=== PATIENT | female | born 1935 | race Hispanic/Latino ===

== ENCOUNTER → 2017-08-19 | Outpatient (CLI) | payer MEDICARE ==
[~2017-08-19] MED LIST: REGADENOSON 0.4 MG/5 ML SYR IV ONE
--- NOTE | 2017-08-20 07:55 | Cardiology Report ---
DATE OF STUDY: LEXISCAN NUCLEAR STRESS TEST INDICATION: Chest pain. TECHNIQUE: The patient was given 10.7 millicuries of Myoview. Resting images were obtained in the horizontal long axis, vertical long axis, and short axis. Patient was then moved over and hooked up to the EKG machine. Lexiscan was infused over 15 seconds. During Lexiscan infusion, the patient had no chest pain and no EKG changes. Immediately after completion of Lexiscan infusion, the patient was given 30.7 millicuries of Myoview. Stress images were obtained 30 minutes after completion of Lexiscan infusion. Stress images were obtained in the horizontal long axis, vertical long axis, and short axis. RESULTS 1. The resting EKG demonstrated normal sinus rhythm with nonspecific S/T and T-wave changes. 2. There were no EKG changes and no symptoms during Lexiscan infusion. 3. The patient had normal perfusion to all segments of the myocardium in both stress and rest. 4. There was normal left ventricular size and function with an estimated ejection fraction of 69%. CONCLUSION: Normal nuclear stress test with no evidence of ischemia. There is normal left ventricular size and function. Job#: [id number] [place]
== END ==
LOC: NM 10:47
PROVIDERS: ATTEND Internal Medicine Cardiovascular Disease
DX: I20.8 Other forms of angina pectoris (principal)
CPT/HCPCS: 78452; 93017; A9502

== ENCOUNTER 2019-11-10 21:55 | Inpatient (IN) | payer MEDICARE, OTHER ==
[~2019-11-10] VITALS: Ht 160 cm; Wt 63.4 kg
[2019-11-10] MEDS ORDERED: DILTIAZEM 24HR240 M1 PO (23:00)
[2019-11-10] MEDS ORDERED: LEVOTHYROXINE75 MCG PO (23:00)
[2019-11-10] MEDS ORDERED: SUCRALFATE1 GM PO (23:00)
[2019-11-10] MEDS ORDERED: LOSARTAN POTAS100 MG PO (23:00)
[2019-11-10] MEDS ORDERED: CEFDINIR300 MG PO (23:00)
[2019-11-10] MEDS ORDERED: FERROUS SULFAT325 MG PO (23:00)
[2019-11-10] MEDS ORDERED: FUROSEMIDE40 MG PO (23:00)
[2019-11-10 23:31] LABS: BASOPHILS % 0.4 % (0.0-1.0); EOSINOPHILS % 0.1 % (0.0-6.0); HEMATOCRIT 29.1 % (34.2-44.1); HEMOGLOBIN 9.2 g/dL (12.0-16.0); LYMPHOCYTES # (AUTO) 0.8 (1.0-3.2); LYMPHOCYTES % 10.2 % (18.0-39.1); MEAN CORPUSCULAR HEMOGLOBIN 28.4 pg (28-32); MEAN CORPUSCULAR HGB CONC 31.6 g/dL (31-35); MEAN CORPUSCULAR VOLUME 89.8 fL (81-99); MONOCYTES # (AUTO) 0.5 (0.2-0.8); MONOCYTES % 6.9 % (4.4-11.3); NEUTROPHILS # (AUTO) 6.4 (2.1-6.9); NEUTROPHILS % 81.9 % (38.7-80.0); PLATELET COUNT 188 x10e3/uL (140-360); RED BLOOD COUNT 3.24 x10e6/uL (3.6-5.1); RED CELL DISTRIBUTION WIDTH 13.2 % (11.7-14.4)
--- NOTE | 2019-11-10 23:31 | Diagnostic Imaging Report ---
Examination: Single AP view of the chest. COMPARISON: None. INDICATION: Cough, positive COVID test IMPRESSION: 1. Lines and Tubes: None 2. Lungs are mildly hypoinflated. Patchy bibasilar opacities, left greater than right. Questionable ill-defined patchy airspace opacity in the right upper to midlung. These may represent multifocal pneumonia including viral infection 3. Cardiomediastinal silhouette is normal. Central venous crowding. 4. No acute bony abnormalities. Signed by: Dr. Niels Gonsalez M.D. on 11/10/2019 11:27 PM
[2019-11-11] MEDS ORDERED: CEFTRIAXONE SOD 1 GM/NS 50 ML 50 ML IV ONE
[2019-11-11] MEDS ORDERED: ACETAMINOPHEN 325 MG TAB PO ONE (00:15)
[2019-11-11 00:19] LABS: ALBUMIN 3.4 g/dL (3.5-5.0); ALBUMIN/GLOBULIN RATIO 0.9 (0.8-2.0); ANION GAP 19.8 mmol/L (8-16); CREATININE, SERUM 2.74 mg/dL (0.57-1.11); POTASSIUM 5.8 mmol/L (3.5-5.1)
--- NOTE | 2019-11-11 00:19 | Emergency Department Note ---
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 Historian: Patient Arrival Mode: Car Onset (how long ago): day(s) (4) Location: CHEST Quality: COUGH, FEVER, CHILLS Radiation: Reports non-radiation Onset quality: gradual Duration (how long): day(s) (4) Progression: worsening Context: Reports recent illness (URI SYMPTOMS) Relieving factors: none Exacerbating factors: none Associated symptoms: Reports denies other symptoms (CARROLL ROY MD) Past Medical/Family History Physician Review I have reviewed the patient's past medical and family history. Any updates have been documented here. (CARROLL ORY MD) Past Medical History Recent Fever: Yes Clinical Suspicion of Infectio: Yes New/Unexplained Change in Ment: No Past Medical History: Hypertension, Hypothyroidism, Anemia Past Surgical History: Cholecysctectomy, Hernia Repair, Cataract Removal (CARROLL ROY MD) Social History Smoking Cessation: Never Smoker Alcohol Use: None Any Illegal Drug Use: No (CARROLL ROY MD) Family History Family history of heart diseas: No Other family history HTN (CARROLL ROY MD) Other Last Tetanus: UNK (CARROLL ROY MD) Review of Systems Review of Systems Constitutional: Reports as per HPI EENTM: Reports no symptoms Cardiovascular: Reports no symptoms Respiratory: Reports as per HPI Gastrointestinal: Reports as per HPI Genitourinary: Reports no symptoms Musculoskeletal: Reports no symptoms Integumentary: Reports no symptoms Neurological: Reports no symptoms Psychological: Reports no symptoms Endocrine: Reports no symptoms Hematological/Lymphatic: Reports no symptoms (CARROLL ROY MD) Physical Exam Related Data Allergies: Coded Allergies: No Known Allergies (Unverified , 12/10/11) Triage Vital Signs Vital Signs Date Time Temp Pulse Resp B/P (MAP) Pulse Ox O2 Delivery O2 Flow Rate FiO2 11/10/19 21:55 100.4 85 22 165/82 92 Vital signs reviewed: Yes (CARROLL ROY MD) Physical Exam CONSTITUTIONAL Constitutional: Present well-developed, Present well-nourished HENT HENT: Present normocephalic, Present atraumatic, Present oropharynx clear/moist, Present nose normal HENT L/R: Present left ext ear normal, Present right ext ear normal EYES Eyes: Reports PERRL, Reports conjunctivae normal NECK Neck: Present ROM normal PULMONARY Pulmonary: Present effort normal, Present rhonchi (AT BASES BILATERAL) CARDIOVASCULAR Cardiovascular: Present regular rhythm, Present heart sounds normal, Present capillary refill normal, Present normal rate GASTROINTESTINAL Abdominal: Present soft, Present nontender, Present bowel sounds normal GENITOURINARY Genitourinary: Present exam deferred SKIN Skin: Present warm, Present dry MUSCULOSKELETAL Musculoskeletal: Present ROM normal NEUROLOGICAL Neurological: Present alert, Present oriented x 3, Present no gross motor or sensory deficits PSYCHOLOGICAL Psychological: Present mood/affect normal, Present judgement normal (CARROLL ROY MD) Results Laboratory Result Diagram: 11/10/19 2730 Laboratory Laboratory Tests Test 11/10/19 22:58 White Blood Count 7.82 x10e3/uL (4.8-10.8) Red Blood Count 3.24 x10e6/uL (3.6-5.1) Hemoglobin 9.2 g/dL (12.0-16.0) Hematocrit 29.1 % (34.2-44.1) Mean Corpuscular Volume 89.8 fL (81-99) Mean Corpuscular Hemoglobin 28.4 pg (28-32) Mean Corpuscular Hemoglobin Concent 31.6 g/dL (31-35) Red Cell Distribution Width 13.2 % (11.7-14.4) Platelet Count 188 x10e3/uL (140-360) Neutrophils (%) (Auto) 81.9 % (38.7-80.0) Lymphocytes (%) (Auto) 10.2 % (18.0-39.1) Monocytes (%) (Auto) 6.9 % (4.4-11.3) Eosinophils (%) (Auto) 0.1 % (0.0-6.0) Basophils (%) (Auto) 0.4 % (0.0-1.0) Neutrophils # (Auto) 6.4 (2.1-6.9) Lymphocytes # (Auto) 0.8 (1.0-3.2) Monocytes # (Auto) 0.5 (0.2-0.8) Eosinophils # (Auto) 0.0 (0.0-0.4) Basophils # (Auto) 0.0 (0.0-0.1) Absolute Immature Granulocyte (auto 0.04 x10e3/uL (0-0.1) Sodium Level 140 mmol/L (136-145) Potassium Level 5.8 mmol/L (3.5-5.1) Chloride Level 112 mmol/L (98-107) Carbon Dioxide Level 14 mmol/L (22-29) Anion Gap 19.8 mmol/L (8-16) Blood Urea Nitrogen 51 mg/dL (7-26) Creatinine 2.74 mg/dL (0.57-1.11) Estimat Glomerular Filtration Rate 16 ML/MIN (60-) BUN/Creatinine Ratio 19 (6-25) Glucose Level 116 mg/dL (74-118) Calcium Level 8.0 mg/dL (8.4-10.2) Total Bilirubin 0.4 mg/dL (0.2-1.2) Aspartate Amino Transf (AST/SGOT) 42 IU/L (5-34) Alanine Aminotransferase (ALT/SGPT) 12 IU/L (0-55) Alkaline Phosphatase 95 IU/L (40-150) Creatine Kinase 49 IU/L (29-168) Creatine Kinase MB 0.90 ng/mL (0-5.0) Troponin I 0.015 ng/mL (0-0.300) Total Protein 7.3 g/dL (6.5-8.1) Albumin 3.4 g/dL (3.5-5.0) Globulin 3.9 g/dL (2.3-3.5) Albumin/Globulin Ratio 0.9 (0.8-2.0) Laboratory Tests Test 11/10/19 22:58 White Blood Count 7.82 x10e3/uL (4.8-10.8) Red Blood Count 3.24 x10e6/uL (3.6-5.1) Hemoglobin 9.2 g/dL (12.0-16.0) Hematocrit 29.1 % (34.2-44.1) Mean Corpuscular Volume 89.8 fL (81-99) Mean Corpuscular Hemoglobin 28.4 pg (28-32) Mean Corpuscular Hemoglobin Concent 31.6 g/dL (31-35) Red Cell Distribution Width 13.2 % (11.7-14.4) Platelet Count 188 x10e3/uL (140-360) Neutrophils (%) (Auto) 81.9 % (38.7-80.0) Lymphocytes (%) (Auto) 10.2 % (18.0-39.1) Monocytes (%) (Auto) 6.9 % (4.4-11.3) Eosinophils (%) (Auto) 0.1 % (0.0-6.0) Basophils (%) (Auto) 0.4 % (0.0-1.0) Neutrophils # (Auto) 6.4 (2.1-6.9) Lymphocytes # (Auto) 0.8 (1.0-3.2) Monocytes # (Auto) 0.5 (0.2-0.8) Eosinophils # (Auto) 0.0 (0.0-0.4) Basophils # (Auto) 0.0 (0.0-0.1) Absolute Immature Granulocyte (auto 0.04 x10e3/uL (0-0.1) Lab results reviewed: Yes (CARROLL ROY MD) Imaging Imaging results reviewed: Yes Impressions Examination: Single AP view of the chest. COMPARISON: None. INDICATION: Cough, positive COVID test IMPRESSION: 1. Lines and Tubes: None 2. Lungs are mildly hypoinflated. Patchy bibasilar opacities, left greater than right. Questionable ill-defined patchy airspace opacity in the right upper to midlung. These may represent multifocal pneumonia including viral infection 3. Cardiomediastinal silhouette is normal. Central venous crowding. 4. No acute bony abnormalities. Signed by: Dr. Niels Gonsalez M.D. on 11/10/2019 11:27 PM (CARROLL ROY MD) Procedures 12 Lead ECG Interpretation ECG Interpretation : ECG: ECG 1 Power Shovel Operator: Interpreted by ED physician Date: Nov 10, 2019 Time: 02:41 Rhythm: sinus rhythm Rate: normal BPM: 79 QRS axis: normal Conduction: LAFB ST segments normal: Yes T waves normal: No (SLIGHTLY PEAKED THROUGH OUT) Other findings: no other findings Clinical Impression: abnormal ECG (CARROLL ROY MD) Critical Care Time Total Critical Care Time (min): 31 Critcal care necessary due to: renal failure Critcal care time spent by me: develop tx plan w patient/surrogate, discussion w consultants, interpret cardiac output measures, evaluation patient response to tx, examination of patient, obtaining hx from patient/surrogate, order/perform tx or interventions, order/review laboratory studies, order/review radiographic studies, pulse oximetry, re-evaluation of patient condition (CARROLL ROY MD) Assessment & Plan Medical Decision Making MDM PT WITH POSITVE COVID TEST TODAY AND HYPERKALEMIA, CBC, CMP, EKG, CARDIAC ENZYMES, CXR ORDERED TO EVAL FOR ELECTROLYTE ABNORMALITY, PNEUMONIA, MYOCARDIAL INFARCTION ROCEPHIN 1 GRAM IV ORDERED. PT'S POTASSIUM 5.8 1 AMP CALCIUM GLUCONATE ORDERED 1 AMP BICARB ORDERED REGULAR INSULIN 10 UNITS IV ORDERED 1 AMP D5O ORDERED KAYEXALATE 30 GRAMS PO ORDERED D5 W WITH 3 AMPS OF BICARB AT 75 CC/HOUR IV ORDERED AT [address] GUTIERREZ TRANSFER PENDING (CARROLL ROY MD) Assessment & Plan Final Impression: (1) COVID-19 (2) Viral pneumonia (3) Renal failure (ARF), acute on chronic (4) Hyperkalemia (CARROLL ROY MD) Depart Disposition: ADMITTED Last Vital Signs Date Time Temp Pulse Resp B/P (MAP) Pulse Ox O2 Delivery O2 Flow Rate FiO2 11/10/19 21:55 100.4 85 22 165/82 92 (CARROLL ROY MD) Home Meds Reported Medications Losartan Potassium (LOSARTAN POTASSIUM) 100 Mg Tablet, 100 MG PO DAILY 11/10/19 Levothyroxine Sodium (LEVOTHYROXINE SODIUM) 75 Mcg Tablet, 75 MCG PO DAILY 11/10/19 Furosemide (FUROSEMIDE) 40 Mg Tablet, 40 MG PO DAILY 11/10/19 Sucralfate (SUCRALFATE) 1 Gm Tablet, 1 GM PO BID 11/10/19 Cefdinir (OMNICEF) 300 Mg Capsule, 300 MG PO DAILY 11/10/19 Ferrous Sulfate (FERROUS SULFATE) 325 Mg Tablet, 325 MG PO BID 11/10/19 Diltiazem Hcl (DILTIAZEM 24HR CD) 240 Mg Cap.er.24h, 240 MG PO DAILY 11/10/19 Medications in the ED Ceftriaxone Sodium 50 ml @ 100 mls/hr ONCE ONCE IV ; Start 11/11/19 at 00:00; Stop 11/11/19 at 00:29 Acetaminophen 650 mg ONCE ONCE PO ; Start 11/11/19 at 00:15; Stop 11/11/19 at 00:16; Status UNV (CARROLL ROY MD) Physician Attestation Provider Attestation SIGN OUT RECEIVED FROM DR. ROY to follow-up potassium AND DISPO PT Repeat potassium improved patient admitted to the inpt covid unit (TRICIA GUTIERREZ DO) CARROLL ROY MD Nov 11, 2019 00:19 TRICIA GUTIERREZ DO Nov 11, 2019 12:25
[2019-11-11 00:27] LABS: CREATINE KINASE MB 0.9 ng/mL (0-5.0)
[2019-11-11] MEDS ORDERED: SODIUM BICARBONATE 8.4% INJ 50 ML SYR IV STA (01:21)
[2019-11-11] MEDS ORDERED: DEXTROSE 50% SYRINGE 50 ML IV STA (01:21)
[2019-11-11] MEDS ORDERED: INSULIN REGULAR, HUMAN 100 UNIT/1 ML 3ML VIAL IV ONE (01:30)
[2019-11-11] MEDS ORDERED: SOD POLYSTYRENE SULFONATE SUSP 15 GM/60 ML BTL PO ONE (01:30)
[2019-11-11] MEDS ORDERED: SODIUM BICARBONATE 8.4% 150 ML in DEXTROSE 5% 1,000 ML IV ONE (01:30)
[2019-11-11] MEDS ORDERED: CALCIUM GLUCONATE 10% INJ 13.95 MEQ in SODIUM CHLORIDE 0.9% 100 ML 100 ML IV ONE (01:30)
[2019-11-11] MEDS ORDERED: CALCIUM GLUCONATE 10% INJ 0.465 MEQ/ML VIAL ONE (01:45)
[2019-11-11] MEDS ORDERED: SODIUM CHLORIDE 0.9% 100 ML ONE (01:57)
[2019-11-11] MEDS ORDERED: DEXTROSE 5% 0 ML IV ONE (02:42)
--- NOTE | 2019-11-11 02:53 | NUR ---
ATTEMPTED TO TRANSFER PT TO THE FOLLOWING: [facility]: 0150 - DENIED, NO AVAILABILITY - SIMRAN BUI RN. [facility]: 0152 - DENIED. NO BED AVAILIBILITY. SPOKE WITH KEITH DELA CRUZ, DECK SUPERVISOR. SYSTEM WIDE SATURATION. [facility]: 0203 - SPOKE WITH KIRSTIN FRAUSTO, DECK SUPERVISOR REGARDING BED STATUS. 0220 RECEIVED CALL FROM Mike FRAUSTO, DENIED, NO BED AVAILABILITY SYSTEM WIDE. [facility]: 0225 - DENIED, NO AVAILABILITY. SPOKE TO HEALTH SYSTEM AND WAS NOTIFIED ALL [facility] SYSTEM WIDE ARE ON SATURATION. [facility]: 0226 - DENIED, NO BED AVAILABILITY. SPOKE WITH DES BAPTISTE, DECK SUPERVISOR.
--- NOTE | 2019-11-11 02:55 | NUR ---
SPOKE WITH SIMRAN BUI, STRAINER TENDERLEAD TECHNICAL WRITER REGARDING BED STATUS. PT PLACED ON TRANSFER BOARD TO WAIT FOR BED AVAILABILITY. PT FACE SHEET FAXED TO [facility], [phone].
[2019-11-11] MEDS ORDERED: SODIUM BICARBONATE 8.4% SYRING 150 ML ONE (03:48)
--- NOTE | 2019-11-11 07:59 | NUR ---
Repeat BMP redrawn via 23g butterfly to L hand.
[2019-11-11 08:17] LABS: ANION GAP 13.6 mmol/L (8-16); CALCIUM 8.2 mg/dL (8.4-10.2); CREATININE, SERUM 2.5 mg/dL (0.57-1.11); POTASSIUM 4.6 mmol/L (3.5-5.1)
[2019-11-11 12:00] VITALS: BP 93/66
--- NOTE | 2019-11-11 13:33 | Consultation ---
DATE OF CONSULTATION: REASON FOR CONSULTATION: COVID-19 pneumonia. HISTORY OF PRESENT ILLNESS: This is an 84-year-old female, very pleasant, comes into the emergency room with 3 days history of shortness of breath and cough. The patient came to the emergency room. She needs to be on 2 L of oxygen. She gets hypoxemic if she walks, but when she is lying in bed, she is very comfortable. The patient is currently lying in bed. The patient, who otherwise has history of chronic kidney disease, anemia, and hypothyroidism. PAST SURGICAL HISTORY: Denies. SOCIAL HISTORY: There is no smoking, drug abuse, or alcohol abuse. HOME MEDICATIONS: She has been on Omnicef, diltiazem, iron sulfate, furosemide, levothyroxine, and losartan. LABORATORY DATA: White count 7.82 and hemoglobin 9.2. Sodium 143, potassium 4.6, and creatinine 2.5. PHYSICAL EXAMINATION: GENERAL: She is currently alert and oriented. Does not seem to be in acute distress. VITAL SIGNS: Stable, currently afebrile. HEENT: She is not icteric. NECK: Supple. CHEST: Clear. COR: S1 and S2. No S3, S4, or murmur. ABDOMEN: Soft. IMPRESSION: 1. COVID-19, present on admission. 2. Diabetes mellitus. 3. Chronic kidney disease. 4. Concerned about superimposed bacterial pneumonia. We will give her Rocephin 1 g daily, azithromycin 500 mg daily, and heparin 5000 subcutaneous q.12. continue all her home medications. We will follow. MD DANETTE Heller/AVILA /[id number]
[2019-11-11] MEDS ORDERED: ACETAMINOPHEN 325 MG TAB PO PRN (14:00)
[2019-11-11] MEDS ORDERED: ONDANSETRON HCL INJ 2MG/ML 2ML 2 MG/ML VIAL IV PRN (14:00)
--- NOTE | 2019-11-11 14:00 | NUR ---
per dr. harris, repeat covid 19 testing not indicated since patient arrived with positive result from outside ER.
--- NOTE | 2019-11-11 14:59 | NUR ---
H&P cc: sob HPI: 84yoF, PCP unknown, developed worsening of breath, with cough. Found to be positive for COVID19. PMH: hypothyroidism, HTN, anemia, GERD PShx: unknown Allergies; see emr FH/SH: no illicits/cigs Meds;see MAR ROS: unreliable v/s; revd PE tired appearing anicteric ns1s2 REDUCED BS soft nt nd no e/t skin dry flat affect awake labs/meds revd A/P; Acute resp failure- abx; O2; steroids Multifocal PNA- IV abx Hyperkalemia- recheck KALLIE- IVF; recheck Physical deconditioning- PT Prop: heparin BID Dipso: monitor closely; f/u COVID testing;
[2019-11-11 16:00] VITALS: BP 137/98
[2019-11-11] MEDS: SUCRALFATE 1 GM TAB PO SCH (16:41)
[2019-11-11] MEDS: ASCORBIC ACID 500 MG TAB PO SCH (16:41)
[2019-11-11] MEDS: FERROUS SULFATE 325 MG TAB PO SCH (16:41)
[2019-11-11] MEDS: GUAIFENESIN/CODEINE 10 ML CUP PO PRN ×2 (16:41→20:35)
--- NOTE | 2019-11-11 17:35 | Consultation ---
DATE OF CONSULTATION: Pulmonary Critical Care Consultation CHIEF COMPLAINT: The patient is complaining of cough and malaise for a week. HISTORY OF PRESENT ILLNESS: The patient is an 84-year-old woman. She has a history of renal insufficiency, hypothyroidism, and hypertension. She complains of cough for about a week. She has some malaise. She had one episode of fevers. She has some shortness of breath. She went to a freestanding ER last night and tested positive for COVID. She was also found to have an elevated potassium. The patient was subsequently transferred to our hospital. She received some bicarbonate along with some insulin and Kayexalate. Her potassium is now improved. PAST MEDICAL HISTORY: 1. Hypertension. 2. Renal insufficiency. 3. Hypothyroidism. 4. No prior history of heart disease. 5. No prior history of asthma or COPD. PAST SURGICAL HISTORY: Noncontributory. ALLERGIES: NO KNOWN DRUG ALLERGIES. SOCIAL HISTORY: The patient has never smoked. She has never been a drinker. FAMILY HISTORY: Family history is noncontributory. REVIEW OF SYSTEMS: She reports one episode of fevers last week. She has no headache. She reports decreased appetite and weakness. She has some cough. She reports dyspnea on exertion. She has no chest pain. She does not complain of nausea or vomiting. She has no abdominal pain. She has no diarrhea. She has no leg edema. PHYSICAL EXAMINATION: VITAL SIGNS: The blood pressure is 93/66 and the saturation is 97% on 2 L. The pulse is 70. HEENT: Shows no facial swelling or erythema. CARDIAC: Reveals regular rate and rhythm with normal S1 and S2. LUNGS: Auscultation of lungs reveals rhonchorous breath sounds bilaterally. There is no wheezing. ABDOMEN: Soft and nontender. There is no rebound or guarding. EXTREMITIES: Shows no leg edema or calf tenderness. There is no cyanosis or clubbing. SKIN: Shows no rashes. NEUROLOGICAL: Shows no focal abnormalities. RADIOGRAPHIC DATA: Chest x-ray shows patchy bibasilar opacities. LABORATORY DATA: The potassium was 5.8, but is improved to 4.6. Her creatinine is 2.5 and her BUN is 47. Her estimated GFR is 18. Other electrolytes are within normal limits. White blood cell count is 7.8 and the hemoglobin is 9.2. The platelet count is 188. IMPRESSION: 1. Viral pneumonia and COVID-19 infection. 2. Cwpcu-if-bqwkrhl renal failure. 3. Hyperkalemia. 4. Hypothyroidism. 5. Hypertension. PLAN: 1. Continue Zithromax and Rocephin. 2. DVT prophylaxis. 3. Continue bicarbonate. 4. Continue to monitor potassium and creatinine. 5. Nephrology consultation. Hero Russell MD [facility]/MODL /[id number]
[2019-11-11 18:01] VITALS: BP 137/98
[2019-11-11 18:02] VITALS: BP 137/98
--- NOTE | 2019-11-11 18:28 | NUR ---
consult to dr. ambrocio called via answering service.
--- NOTE | 2019-11-11 18:28 | NUR ---
patient's son and daughter notified and updated on plan of care
[2019-11-11 20:00] VITALS: BP 165/84
[2019-11-11] MEDS: HEPARIN SOD (PORCINE) 5,000 UNIT/ML VIAL SC SCH (20:50)
[2019-11-11 21:00] VITALS: BP 165/84
[2019-11-12] VITALS (8 sets, daily range): BP systolic 117–162; BP diastolic 48–106
[2019-11-12 05:23] LABS: BASOPHILS % 0.5 % (0.0-1.0); EOSINOPHILS % 0.2 % (0.0-6.0); HEMATOCRIT 30.6 % (34.2-44.1); HEMOGLOBIN 9.6 g/dL (12.0-16.0); LYMPHOCYTES # (AUTO) 1.5 (1.0-3.2); LYMPHOCYTES % 18.2 % (18.0-39.1); MEAN CORPUSCULAR HEMOGLOBIN 28.7 pg (28-32); MEAN CORPUSCULAR HGB CONC 31.4 g/dL (31-35); MEAN CORPUSCULAR VOLUME 91.6 fL (81-99); MONOCYTES # (AUTO) 0.5 (0.2-0.8); MONOCYTES % 6.2 % (4.4-11.3); NEUTROPHILS # (AUTO) 6.1 (2.1-6.9); NEUTROPHILS % 74.3 % (38.7-80.0); PLATELET COUNT 224 x10e3/uL (140-360); RED BLOOD COUNT 3.34 x10e6/uL (3.6-5.1); RED CELL DISTRIBUTION WIDTH 13.1 % (11.7-14.4)
[2019-11-12] MEDS: GUAIFENESIN/CODEINE 10 ML CUP PO PRN ×3 (05:47→22:39)
[2019-11-12] MEDS: LEVOTHYROXINE SODIUM 75 MCG TAB PO SCH (05:47)
[2019-11-12 05:48] LABS: ALBUMIN 2.9 g/dL (3.5-5.0); ALBUMIN/GLOBULIN RATIO 0.8 (0.8-2.0); ANION GAP 17.4 mmol/L (8-16); CALCIUM 8.2 mg/dL (8.4-10.2); CREATININE, SERUM 2.48 mg/dL (0.57-1.11); POTASSIUM 4.4 mmol/L (3.5-5.1)
--- NOTE | 2019-11-12 06:50 | NUR ---
Dr. Russell making rounds, inquire about the if the patient needs to continue IV antibiotics, MD verbalized he will take care of it.
--- NOTE | 2019-11-12 06:52 | NUR ---
RECEIVED BEDSIDE SHIFT REPORT FROM OFF GOING NURSE. PATIENT IS RESTING IN BED. NO ACUTE DISTRESS NOTED. CALL LIGHT WITHIN REACH. BED IN THE LOWEST POSITION.BED ALARM ON.
--- NOTE | 2019-11-12 08:13 | Progress Note ---
DATE: SUBJECTIVE: The patient feels better. She has less cough. She still has some weakness. She has not had any further diarrhea. OBJECTIVE: VITAL SIGNS: The patient is afebrile. The blood pressure is 162/80, saturation is 94% on 2 L. HEENT: Shows no facial swelling or erythema. CARDIAC: Reveals regular rate and rhythm with normal S1, S2. LUNGS: Auscultation of lungs reveals crackles at the base. There is no wheezing. ABDOMEN: Soft and nontender. There is no rebound or guarding. EXTREMITIES: Shows no leg edema or calf tenderness. There is no cyanosis or clubbing. SKIN: Shows no rashes. IMPRESSION: 1. Viral pneumonia and COVID-19 infection. 2. Acute on chronic renal failure. 3. Hyperkalemia. 4. Hypothyroidism. 5. Hypertension. PLAN: 1. Continue antibiotics. 2. Continue to monitor renal function and potassium. 3. Cough suppressants. 4. Oxygen. 5. Possible discharge home tomorrow. Hero Russell MD [facility]/MODL /[id number]
[2019-11-12] MEDS ORDERED: DEXAMETHASONE PHOS 4MG/ML 5ML MULTIDOSE VIAL IV SCH (09:00)
[2019-11-12] MEDS ORDERED: CHLOROTHIAZIDE SODIUM 500 MG VIAL IV ONE (09:45)
[2019-11-12] MEDS: CHOLECALCIFEROL 400 UNIT TAB PO SCH (09:45)
[2019-11-12] MEDS: ASCORBIC ACID 500 MG TAB PO SCH ×2 (09:45→16:16)
[2019-11-12] MEDS: FERROUS SULFATE 325 MG TAB PO SCH ×2 (09:45→16:16)
[2019-11-12] MEDS: AZITHROMYCIN 500MG/NS 250 ML 250 ML IV SCH (09:45)
[2019-11-12] MEDS: ZINC SULFATE 220 MG CAP PO SCH (09:45)
[2019-11-12] MEDS: HEPARIN SOD (PORCINE) 5,000 UNIT/ML VIAL SC SCH ×2 (09:45→21:10)
[2019-11-12] MEDS ORDERED: FUROSEMIDE INJ 10 MG/ML 4 ML VIAL IV ONE (09:45)
[2019-11-12] MEDS: SUCRALFATE 1 GM TAB PO SCH ×2 (09:45→16:16)
[2019-11-12] MEDS ORDERED: SODIUM CHLORIDE 0.9% 250ML 250 ML ONE (10:04)
[2019-11-12 10:22] LABS: CLARITY,URINE CLEAR (CLEAR); COLOR,URINE YELLOW (YELLOW)
[2019-11-12 10:23] LABS: BILIRUBIN,URINE NEGATIVE (NEGATIVE); KETONES,URINE NEGATIVE (NEGATIVE); LEUKOCYTE ESTERASE ,URINE NEGATIVE (NEGATIVE); NITRITE,URINE NEGATIVE (NEGATIVE); PROTEIN,URINE DIPSTICK 2+ (NEGATIVE); URINE UROBILINOGEN 0.2 mg/dL (0.2 - 1)
--- NOTE | 2019-11-12 10:29 | Consultation ---
DATE OF CONSULTATION: Renal consultation. Thank you, Dr. Mays, for the consultation. HISTORY OF PRESENT ILLNESS: Ms. Bullard is an 84-year-old female with a past medical history significant for prior history of hypertension, congestive heart failure, prior history of anemia of chronic disease, came into the hospital apparently with worsening shortness of breath, cough, congestion, fever, found to be positive for COVID-19. Subsequently, she was admitted to the hospital, treated overnight with fluids with bicarb and apparently had bicarb of 14 on admission. Creatinine was also elevated at 2.74 as was the potassium at 5.8 with a bicarb of 14. The patient received 1 L of bicarb drip. Potassium improved to 4.6 and then 4.4 this morning. Creatinine is about 2.5, which appears to be patient's baseline. Bicarb has gone down a little bit to 19. The patient still has some shortness of breath and cough. Chest x-ray yesterday did show suggestion of probably COVID pneumonia, may be a component of fluid overload also. No current fever at this time and no other specific symptoms. Renal consultation has been asked for management of acute kidney injury on chronic kidney disease, appears to be CKD stage 4 at baseline. PAST MEDICAL HISTORY: As outlined above. ALLERGIES: NO KNOWN DRUG ALLERGIES. SOCIAL HISTORY: No tobacco. No alcohol use. FAMILY HISTORY: Noncontributory. REVIEW OF SYSTEMS: See HPI. Otherwise, all systems negative. OUTPATIENT MEDICATIONS: 1. Diltiazem. 2. Iron sulfate. 3. Furosemide. 4. Levothyroxine. 5. Losartan. 6. Sucralfate. PHYSICAL EXAMINATION: HEENT: No cervical lymphadenopathy. NECK: Supple without masses. No obvious JVD. Moist appearing oral mucosa. SKIN: Moist with good skin turgor. CHEST WALL: Good expansion. No chest wall tenderness. LUNGS: Rales and rhonchi bilaterally in the lung queen. CARDIOVASCULAR: S1, S2. No obvious gallop, rub or murmur. ABDOMEN: Soft. Positive bowel sounds. Nontender. No organomegaly. EXTREMITIES: No muscle extremity edema. No clubbing. No cyanosis. NEUROLOGIC: Awake, alert, and oriented x3. Grossly nonfocal exam. LABORATORY WORKUP: Sodium 147, potassium 4.4, chloride 115, carbon 19, BUN 43, creatinine is 2.48, H and H 9.6 and 30.6. IMPRESSION AND PLAN: 1. Acute kidney injury on chronic kidney disease, appears to be chronic kidney disease stage 4 at baseline. Acute kidney injury is likely secondary to the patient having acute onset of SIRS from probable COVID pneumonia. For now, would not give the patient further IV fluids to avoid fluid overload. The patient does take Lasix as an outpatient. We will give the patient one dose of Diuril 250 mg IV x1 since the patient has elevated sodium and may be hypernatremia secondary to fluid overload. We will allow for natriuresis. Repeat labs in the morning including basic metabolic panel, mag, phos, CBC. We will get urine electrolytes as well. Urine protein to creatinine ratio as part of workup for chronic kidney disease, also based on renal ultrasound. For now, no urgent indication for dialysis. Would recommend to avoid all potential nephrotoxic agents at this time. Avoid JOSE inhibitors, ARBs and also nonsteroidal anti-inflammatory drugs and IV dye. We will continue to follow the patient closely along with you and make further recommendations. 2. Hypertension. Blood pressure is currently stable. We will continue to monitor closely on current medications. Titrate medications if needed. 3. Hyperkalemia, resolved now. We will continue to monitor closely and further recommendations. 4. Metabolic acidosis, likely component of acute kidney injury and chronic kidney disease, contributing to metabolic acidosis. Would not give any further IV fluids. 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 5. COVID pneumonia. Plan would be as per Pulmonology and primary recommendations. Thank you once again for the consultation. We will follow the patient closely along with you and make further recommendations. Zac Daley MD [facility]/MODL /[id number] cc: Abdifatah Mays MD
[2019-11-12 10:40] LABS: BACTERIA,URINE MODERATE /HPF; EPITHELIAL CELLS,URINE MANY /LPF
[2019-11-12 11:37] LABS: TOTAL PROTEIN, URINE 132.5 mg/dL (1-14)
--- NOTE | 2019-11-12 12:21 | Diagnostic Imaging Report ---
EXAM: Renal Ultrasound INDICATION: ^[id number] ^[id number] ^EVAL SIZE COMPARISON: None TECHNIQUE: Transverse and longitudinal images of the kidneys and bladder were obtained. FINDINGS: Right Kidney: Length: 7.8 cm Appearance: Increased echogenicity. Collecting system: No hydronephrosis Stones: None Cyst/Mass: None Left Kidney: Length: 8.4 cm Appearance: Normal echogenicity. Collecting system: No hydronephrosis Stones: None Cyst/Mass: None Bladder: Normal IMPRESSION: Increased right renal parenchymal echogenicity can be seen in the setting of medical renal disease. Signed by: Jaelyn Boyd MD on 11/12/2019 12:17 PM
--- NOTE | 2019-11-12 15:55 | Progress Note ---
DATE: SUBJECTIVE: She is lying in bed comfortably, feeling better. The patient has been seen by Nephrology today for acute kidney injury on chronic kidney disease. The patient to have some cough. She is afebrile. LABORATORY DATA: White count 8.19, hemoglobin 9.6. Sodium 147, potassium 4.4, and creatinine . PHYSICAL EXAMINATION: GENERAL: She is currently alert, oriented. VITAL SIGNS: Stable, afebrile. HEENT: She is not icteric. NECK: Supple. CHEST: Crackles bilateral. HEART: S1, S2. No murmur. ABDOMEN: Soft. IMPRESSION AND PLAN: 1. Coronavirus disease-19 on admission. 2. Chronic kidney disease. 3. Coronavirus disease-19 pneumonia, viral. This is day #2. I am going to start tomorrow and we will continue with dexamethasone as ordered. Continue supportive care and she is on 2 L nasal cannula. May need to go home with 2 L nasal cannula. We will follow. MD DANETTE Heller/AVILA /[id number]
--- NOTE | 2019-11-12 17:24 | NUR ---
[facility] NOTIFIED RN THAT PATIENT FLIPPED TO AFIB. CALLED DR. BAKER, NEW ORDERS RECEIVED.
[2019-11-12] MEDS: METOPROLOL TARTRATE INJ 1 MG/ML VIAL IV PRN (17:34)
--- NOTE | 2019-11-12 17:34 | NUR ---
MEDICATED PATIENT WITH PRN METOPROLOL IV ORDERED FOR HR OF 143.
--- NOTE | 2019-11-12 17:42 | NUR ---
CALLED DR. MODI FOR NEW CONSULT.
--- NOTE | 2019-11-12 17:45 | NUR ---
NOTIFIED DR. BAKER OF EKG RESULTS OF AFIB WITH RVR. NO NEW ORDERS RECEIVED.
--- NOTE | 2019-11-12 19:08 | NUR ---
BEDSIDE SHIFT REPORT GIVEN TO ONCOMING NURSE. PATIENT IS RESTING IN BED. NO ACUTE DISTRESS NOTED. CALL LIGHT WITHIN REACH. BED IN THE LOWEST POSITION.
--- NOTE | 2019-11-12 20:16 | NUR ---
IM-progress note O/N see below ROS: unreliable v/s; revd PE tired appearing anicteric ns1s2 REDUCED BS soft nt nd no e/t skin dry flat affect awake labs/meds revd A/P; Acute resp failure- abx; O2; steroids Multifocal PNA- IV abx Hyperkalemia- recheck KALLIE- IVF; recheck Physical deconditioning- PT Prop: heparin BID Dipso: monitor closely; f/u COVID testing; 11-12-19 Resp improving; CKD4 with KALLIE component; U/S does show medicorenal ds. Rapid HR- give AV blockade; check 12 lead EKG. Abdifatah Mays MD, PhD.
--- NOTE | 2019-11-12 20:48 | NUR ---
Received pt in bed awake a/o. Spainish speaking, denies discomfort. Pt with no s/sx of acute distress noted. Resp esdras and unlabored. Personal items and call light within reach. Pt meal sitting in front of patient able to feed self. Bed low and locked. Patient family call to state pt does not have teeth and is unable to chew food, will change diet. Also noted that patient wants room temp water at bedside no ice. Note placed on patient door for reminder. Will cont to mon
[2019-11-13] VITALS (8 sets, daily range): BP systolic 129–161; BP diastolic 64–87
[2019-11-13] MEDS: GUAIFENESIN/CODEINE 10 ML CUP PO PRN ×3 (06:00→21:00)
[2019-11-13] MEDS: LEVOTHYROXINE SODIUM 75 MCG TAB PO SCH (06:00)
[2019-11-13 06:23] LABS: BASOPHILS % 0.2 % (0.0-1.0); HEMOGLOBIN 9.4 g/dL (12.0-16.0); LYMPHOCYTES # (AUTO) 0.9 (1.0-3.2); LYMPHOCYTES % 16.5 % (18.0-39.1); MEAN CORPUSCULAR HEMOGLOBIN 28.5 pg (28-32); MEAN CORPUSCULAR HGB CONC 31.3 g/dL (31-35); MEAN CORPUSCULAR VOLUME 90.9 fL (81-99); MONOCYTES # (AUTO) 0.3 (0.2-0.8); MONOCYTES % 6.1 % (4.4-11.3); NEUTROPHILS % 76.8 % (38.7-80.0); PLATELET COUNT 248 x10e3/uL (140-360); RED CELL DISTRIBUTION WIDTH 13.2 % (11.7-14.4)
[2019-11-13 06:44] LABS: ALBUMIN/GLOBULIN RATIO 0.7 (0.8-2.0); ANION GAP 18.4 mmol/L (8-16); CALCIUM 8.8 mg/dL (8.4-10.2); CREATININE, SERUM 2.7 mg/dL (0.57-1.11); POTASSIUM 4.4 mmol/L (3.5-5.1)
[2019-11-13 06:57] LABS: MAGNESIUM 1.9 MG/DL (1.3-2.1); PHOSPHORUS 5.2 MG/DL (2.3-4.7)
--- NOTE | 2019-11-13 07:06 | Diagnostic Imaging Report ---
Examination: Single AP view of the chest. COMPARISON: Portable chest 11/10/2019 INDICATION: CHF IMPRESSION: 1. Lines and Tubes: None 2. Lungs are well-inflated. Patchy airspace opacity in the left retrocardiac region/left lower lung, which is essentially unchanged since the prior exam. The previously visualized questionable airspace opacity in the right upper to midlung is not seen on the current exam. Findings may represent pneumonia including viral infection. 3. Cardiomediastinal silhouette is normal. Central pulmonary venous crowding. 4. No acute bony abnormalities. Signed by: Dr. Niels Gonsalez M.D. on 11/13/2019 7:03 AM
--- NOTE | 2019-11-13 07:55 | NUR ---
ASSUMED CARE. AAOX3. ACYANOTIC. RESTING IN BED. NO DISTRESS NOTED. BED LOW AND LOCKED. CALL LIGHT IN REACH. SIDE RAILS UP X2.
[2019-11-13] MEDS: AZITHROMYCIN 500MG/NS 250 ML 250 ML IV SCH (09:00)
[2019-11-13] MEDS: DEXAMETHASONE PHOS 4MG/ML 5ML MULTIDOSE VIAL IV SCH (09:00)
[2019-11-13] MEDS: CHOLECALCIFEROL 400 UNIT TAB PO SCH (09:00)
[2019-11-13] MEDS: SUCRALFATE 1 GM TAB PO SCH ×2 (09:00→16:17)
[2019-11-13] MEDS: FERROUS SULFATE 325 MG TAB PO SCH ×2 (09:00→16:17)
[2019-11-13] MEDS: HEPARIN SOD (PORCINE) 5,000 UNIT/ML VIAL SC SCH (09:00)
[2019-11-13] MEDS: ASCORBIC ACID 500 MG TAB PO SCH ×2 (09:00→16:17)
[2019-11-13] MEDS: ZINC SULFATE 220 MG CAP PO SCH (09:00)
[2019-11-13] MEDS ORDERED: DEXAMETHASONE 4 MG TAB PO SCH (09:00)
--- NOTE | 2019-11-13 10:39 | Consultation ---
DATE OF CONSULTATION: Cardiology Consultation REASON FOR CONSULTATION: Atrial fibrillation with rapid ventricular response. CONSULTING PHYSICIAN: Dr. Abdifatah Mays. HISTORY OF PRESENT ILLNESS: Ms. Juan Miguel German is an 84-year-old female of which the nursing staff reports that she came in due to cough and weakness for approximately a week. She has a pertinent past medical history of renal failure, hypothyroidism, and hypertension. It is reported that she was seen in a freestanding ER previously for the above complaints and was tested positive for COVID. I am informed that this test has been reported. PAST MEDICAL HISTORY: 1. Hypertension. 2. Renal insufficiency. 3. Hypothyroidism. PAST SURGICAL HISTORY: Noncontributory. SOCIAL HISTORY: Noncontributory. REVIEW OF SYSTEMS: Unable to obtain at this time. Nursing reports continue complaint of cough and weakness. PHYSICAL EXAMINATION: VITAL SIGNS: Temperature 97.3, pulse 80, respiratory rate 18, blood pressure 161/87, oxygen saturation 100% on 2 L nasal cannula. CARDIOVASCULAR MEDICATIONS: Heparin 5000 units subcu every 12 hours, metoprolol 5 mg q.2 hours p.r.n. for elevated heart rate. LABORATORY DATA: WBC 5.21, hemoglobin 9.4, hematocrit 30.0, platelets 248. Sodium 145, potassium 4.4, BUN 52, creatinine 2.70, AST 29, ALT 12, alkaline phosphatase 94. BNP 1348. Chest x-ray from this morning with normal cardiomediastinal silhouette, central pulmonary venous crowding. Lungs well inflated. Patchy airspace opacity in the left retrocardiac region left lower lung, which is unchanged from prior exam. TELEMETRY: Atrial fibrillation with RVR. IMPRESSION: 1. Atrial fibrillation with rapid ventricular response. 2. Elevated BNP. 3. Acute on chronic renal failure. 4. Bilateral pneumonia coronavirus disease-19 infection. 5. Hypothyroidism. 6. Hypertension. RECOMMENDATIONS: Echocardiogram ordered this morning. Transition from IV heparin to p.o. Eliquis for CVA prophylaxis. Rate control management. Medications adjusted. We will be adding low-dose digoxin and also metoprolol p.o. Gentle diuresis. Cardiac enzymes negative. No ischemic evaluation indicated at this time. We will continue to follow this patient very closely. Maintain on telemetry at this time. Thank you for this consultation and allowing us to participate in this patient's care. Dictated by Genie Ybarra NP MD GIOVANNI Lackey/AVILA /[id number]
[2019-11-13] MEDS ORDERED: CHLOROTHIAZIDE SODIUM 500 MG VIAL IV ONE (10:45)
[2019-11-13] MEDS ORDERED: FUROSEMIDE INJ 10 MG/ML 4 ML VIAL IV NR (11:00)
--- NOTE | 2019-11-13 11:04 | Progress Note ---
DATE: 11/13/2019 Renal Progress Note. SUBJECTIVE: Followed for acute kidney injury on chronic kidney disease stage 4. Creatinine is slightly elevated today. However, the patient was diuresed yesterday. The patient still has ongoing COVID pneumonia. Improving symptomatically today. The patient has been afebrile, O2 sats 100% on 2 L nasal cannula. No nausea, no vomiting. Shortness of breath has improved. OBJECTIVE: VITAL SIGNS: Have been noted are as follows, blood pressure is 160s/80s, pulse 80, respirations 18. LUNGS: No rales at the bases bilaterally. CARDIOVASCULAR: S1, S2. No rub. ABDOMEN: Soft, nontender. EXTREMITIES: No edema. LABORATORY DATA: As follows: Potassium 4.4, BUN is 52, creatinine 2.7, glucose 146, calcium 8.8, and BNP is 1349. IMPRESSION AND PLAN: 1. Acute kidney injury on chronic kidney disease stage 4 at baseline. Likely has chronic kidney disease stage 4. Acute kidney injury is likely secondary to COVID pneumonia, leading to SIRS. For now, continue off IV fluids. I would favor giving more diuretics. I will give one more dose of chlorothiazide IV as well as one dose of IV Lasix since the patient's chest x-ray does suggest pulmonary vascular congestion. We will repeat labs in the morning and make further recommendations. 2. Hypertension, blood pressure is currently elevated. We will titrate up blood pressure medications. 3. Metabolic acidosis, bicarb is at 20, improved from yesterday. We will continue to monitor. Eventually may need to be placed on oral sodium bicarbonate tablets for chronic kidney disease, associated metabolic acidosis from likely renal tubular acidosis. 4. COVID pneumonia, plan would be as per Pulmonology and ID and primary recommendation. Zac Daley MD TH/MODL /[id number]
--- NOTE | 2019-11-13 12:30 | Progress Note ---
DATE: Pulmonary Critical Care Progress Note SUBJECTIVE: The patient is having more atrial fibrillation with a poorly controlled ventricular rate of 130. She has worsening dyspnea. She is on 3 L and saturating well, but she desaturates quickly when she walks or moves. PHYSICAL EXAMINATION: VITAL SIGNS: The patient is afebrile. The blood pressure is 161/87 and saturation is 100% on 2 L. The pulse is irregularly irregular and in the 100 to 110 range. LUNGS: Auscultation of lungs reveals crackles at the bases. There is no wheezing. ABDOMEN: Soft and nontender. There is no rebound or guarding. EXTREMITIES: Shows no leg edema or calf tenderness. There is no cyanosis or clubbing. SKIN: Shows no rashes. NEUROLOGICAL: Shows no focal abnormalities. RADIOGRAPHIC DATA: Chest x-ray shows patchy airspace disease, most prominent in the left lower lobe. There is some cardiomegaly. LABORATORY DATA: BUN to creatinine ratio is 52 to 2.7 and the carbon dioxide is 20. There is an anion gap of 18. Albumin is 3. Hemoglobin is 9.4 and the white blood cell count is 5.2. The platelet count is 248. IMPRESSION: 1. Neduj-bn-ivfvnbo renal failure. 2. Atrial fibrillation with rapid ventricular response. 3. Viral pneumonia and COVID-19 infection. 4. Acute diastolic heart failure. 5. Hypothyroidism. PLAN: 1. The patient received Lasix today. 2. Continue antibiotics. 3. Continue Lopressor. Possible low-dose digoxin with extreme care because of renal issues. 4. Possible amiodarone. 5. Continue dexamethasone. Case discussed with the patient and daughter. Hero Russell MD [facility]/MODL /[id number]
--- NOTE | 2019-11-13 13:24 | NUR ---
IM-progress note O/N see below ROS: unreliable v/s; revd PE tired appearing anicteric ns1s2 REDUCED BS soft nt nd no e/t skin dry flat affect awake labs/meds revd A/P; Acute resp failure- abx; O2; steroids Multifocal PNA- IV abx Hyperkalemia- recheck KALLIE- IVF; recheck Physical deconditioning- PT Prop: heparin BID Dipso: monitor closely; f/u COVID testing; 11-12-19 Resp improving; CKD4 with KALLIE component; U/S does show medicorenal ds. Rapid HR- give AV blockade; check 12 lead EKG. 11-12 A.fib with RVR overnight- cardio consulted; echo ordered; eliquis for AC. Abdifatah Mays MD, PhD.
[2019-11-13] MEDS: METOPROLOL TARTRATE INJ 1 MG/ML VIAL IV PRN (15:05)
[2019-11-13] MEDS: APIXAB 2.5 MG TABLET PO SCH (16:17)
[2019-11-13] MEDS: METOPROLOL TARTRATE 50 MG TAB PO SCH (16:17)
--- NOTE | 2019-11-13 20:32 | NUR ---
Received pt in bed eating a meal. No s/sx of acute distress. Pt denies any discomfort. Dry cough noted. Personal items and call light within reach. Bed low and locked. Pt tolerating meal w/ no diff. Will cont to mon
[2019-11-14] VITALS (7 sets, daily range): BP systolic 141–165; BP diastolic 63–92
[2019-11-14] MEDS: GUAIFENESIN/CODEINE 10 ML CUP PO PRN ×2 (05:52→16:31)
[2019-11-14] MEDS: LEVOTHYROXINE SODIUM 75 MCG TAB PO SCH (05:52)
--- NOTE | 2019-11-14 06:25 | NUR ---
Pt in bed awake a/o. s/p blood draw and new piv line start. Bed in low and locked position, personal items and call light within reach. Will report off to oncoming staff nurse
[2019-11-14 06:35] LABS: ANION GAP 19.4 mmol/L (8-16); CALCIUM 8.8 mg/dL (8.4-10.2); CREATININE, SERUM 2.7 mg/dL (0.57-1.11); POTASSIUM 4.4 mmol/L (3.5-5.1)
[2019-11-14] MEDS: CHOLECALCIFEROL 400 UNIT TAB PO SCH (08:32)
[2019-11-14] MEDS: ASCORBIC ACID 500 MG TAB PO SCH ×2 (08:32→16:31)
[2019-11-14] MEDS: FERROUS SULFATE 325 MG TAB PO SCH ×2 (08:32→16:31)
[2019-11-14] MEDS: DEXAMETHASONE PHOS 4MG/ML 5ML MULTIDOSE VIAL IV SCH (08:32)
[2019-11-14] MEDS: APIXAB 2.5 MG TABLET PO SCH ×2 (08:32→16:31)
[2019-11-14] MEDS: ZINC SULFATE 220 MG CAP PO SCH (08:32)
[2019-11-14] MEDS: AZITHROMYCIN 500MG/NS 250 ML 250 ML IV SCH (08:32)
[2019-11-14] MEDS: SUCRALFATE 1 GM TAB PO SCH ×2 (08:32→16:31)
[2019-11-14] MEDS: METOPROLOL TARTRATE 50 MG TAB PO SCH ×2 (08:34→16:32)
[2019-11-14] MEDS ORDERED: DIGOXIN 0.125 MG TAB PO SCH (09:00)
--- NOTE | 2019-11-14 09:58 | Progress Note ---
DATE: SUBJECTIVE: The patient feels somewhat better today. She is still in atrial fibrillation, but her heart rate is controlled. She is on 2 L of oxygen and saturating in the mid 90s. Appetite is poor. OBJECTIVE: VITAL SIGNS: The patient is afebrile. The blood pressure is 148/80 and saturation is 98%. Respiratory rate is 18. HEENT: Shows no facial swelling or erythema. CARDIAC: Reveals regular rate and rhythm with normal S1 and S2. LUNGS: Auscultation of lungs reveals crackles at bases. There is no wheezing. ABDOMEN: Soft, nontender. There is no rebound or guarding. EXTREMITIES: Shows no leg edema or calf tenderness. There is no cyanosis or clubbing. SKIN: Shows no rashes. LABORATORY DATA: BUN to creatinine ratio is 70 to 2.7 and the sodium is 146. The carbon dioxide is 21. ASSESSMENT: 1. Viral pneumonia and coronavirus disease-19 infection. 2. Atrial fibrillation. 3. Acute on chronic renal failure. 4. Hypertension. 5. Acute diastolic heart failure. PLAN: 1. Continue oxygen. 2. Continue current antibiotics. 3. Dexamethasone. 4. Decrease dose of digoxin because of renal failure. 5. Continue Eliquis. Hero Russell MD [facility]/MODL /[id number]
--- NOTE | 2019-11-14 11:19 | NUR ---
IM-progress note O/N see below ROS: unreliable v/s; revd PE tired appearing anicteric ns1s2 REDUCED BS soft nt nd no e/t skin dry flat affect awake labs/meds revd A/P; Acute resp failure- abx; O2; steroids Multifocal PNA- IV abx Hyperkalemia- recheck KALLIE- IVF; recheck Physical deconditioning- PT Prop: heparin BID Dipso: monitor closely; f/u COVID testing; 11-12-19 Resp improving; CKD4 with KALLIE component; U/S does show medicorenal ds. Rapid HR- give AV blockade; check 12 lead EKG. 11-12 A.fib with RVR overnight- cardio consulted; echo ordered; eliquis for AC. 11-13 cont supportive care; HR controlled; CKD4. Abdifatah Mays MD, PhD.
[2019-11-15] VITALS (8 sets, daily range): BP systolic 115–177; BP diastolic 61–87
[2019-11-15 05:13] LABS: BASOPHILS % 0.1 % (0.0-1.0); HEMATOCRIT 28.7 % (34.2-44.1); HEMOGLOBIN 9.1 g/dL (12.0-16.0); LYMPHOCYTES # (AUTO) 0.8 (1.0-3.2); LYMPHOCYTES % 8.1 % (18.0-39.1); MEAN CORPUSCULAR HEMOGLOBIN 28.1 pg (28-32); MEAN CORPUSCULAR HGB CONC 31.7 g/dL (31-35); MEAN CORPUSCULAR VOLUME 88.6 fL (81-99); MONOCYTES # (AUTO) 0.5 (0.2-0.8); MONOCYTES % 5.3 % (4.4-11.3); NEUTROPHILS # (AUTO) 8.1 (2.1-6.9); NEUTROPHILS % 85.4 % (38.7-80.0); PLATELET COUNT 313 x10e3/uL (140-360); RED BLOOD COUNT 3.24 x10e6/uL (3.6-5.1); RED CELL DISTRIBUTION WIDTH 12.7 % (11.7-14.4)
[2019-11-15] MEDS: LEVOTHYROXINE SODIUM 75 MCG TAB PO SCH (05:22)
[2019-11-15 05:39] LABS: ALBUMIN 2.9 g/dL (3.5-5.0); ALBUMIN/GLOBULIN RATIO 0.8 (0.8-2.0); ANION GAP 15.5 mmol/L (8-16); CALCIUM 8.7 mg/dL (8.4-10.2); CREATININE, SERUM 2.3 mg/dL (0.57-1.11); POTASSIUM 4.5 mmol/L (3.5-5.1)
[2019-11-15 05:51] LABS: ANION GAP 16.5 mmol/L (8-16); CALCIUM 8.7 mg/dL (8.4-10.2); CREATININE, SERUM 2.29 mg/dL (0.57-1.11); MAGNESIUM 2.2 MG/DL (1.3-2.1); PHOSPHORUS 3.7 MG/DL (2.3-4.7); POTASSIUM 4.5 mmol/L (3.5-5.1)
--- NOTE | 2019-11-15 07:00 | NUR ---
RECEIVED SHIFT REPORT FROM OFF GOING NIGHT NURSE. PATIENT IN STABLE CONDITION, NO S/S OF DISTRESS NOTED. NO PAIN VOICED. OXYGEN AT 2 LPM/NC. BED IN LOWEST POSITION AND LOCKED. CALL LIGHT WITHIN REACH.
[2019-11-15] MEDS ORDERED: DIGOXIN 0.25 MG TAB PO SCH ×2 (09:00)
[2019-11-15] MEDS ORDERED: DIGOXIN 0.125 MG TAB PO SCH (09:00)
--- NOTE | 2019-11-15 09:06 | Progress Note ---
DATE: SUBJECTIVE: The patient feels slightly better. She still has some dyspnea with walking. She is in atrial fibrillation with a controlled rate. PHYSICAL EXAMINATION: VITAL SIGNS: The patient is afebrile. The blood pressure is 168/68, saturation is 98% on 2 L. The pulse is 89, is irregularly irregular. CARDIAC: Reveals an irregularly irregular rhythm. LUNGS: Auscultation of lungs reveals crackles at the bases. ABDOMEN: Soft and nontender. There is no rebound or guarding. EXTREMITIES: Shows no leg edema or calf tenderness. There is no cyanosis or clubbing. SKIN: Shows no rashes. NEUROLOGICAL: Shows no focal abnormalities. LABORATORY DATA: White blood cell count is 9.5 and hemoglobin is 9.1. The platelet count is 313. The BUN to creatinine ratio is 76 to 2.29 and the carbon dioxide is 21. Magnesium is 2.2. IMPRESSION: 1. Viral pneumonia and coronavirus disease-19 infection. 2. Atrial fibrillation. 3. Acute on chronic renal failure. 4. Hypertension. 5. Acute diastolic heart failure. PLAN: 1. Continue oxygen. 2. Continue current antibiotics. 3. Continue dexamethasone. 4. Continue Eliquis and digoxin. Hero Russell MD [facility]/GIOVANNYL /[id number]
[2019-11-15] MEDS: AZITHROMYCIN 500MG/NS 250 ML 250 ML IV SCH (09:15)
[2019-11-15] MEDS: FERROUS SULFATE 325 MG TAB PO SCH ×2 (09:15→16:48)
[2019-11-15] MEDS: ZINC SULFATE 50 MG CAP PO SCH (09:15)
[2019-11-15] MEDS: ASCORBIC ACID 500 MG TAB PO SCH ×2 (09:15→16:49)
[2019-11-15] MEDS: DIGOXIN 0.125 MG TAB PO SCH (09:15)
[2019-11-15] MEDS: DEXAMETHASONE PHOS 4MG/ML 5ML MULTIDOSE VIAL IV SCH (09:15)
[2019-11-15] MEDS: CHOLECALCIFEROL 400 UNIT TAB PO SCH (09:15)
[2019-11-15] MEDS: APIXAB 2.5 MG TABLET PO SCH ×2 (09:15→16:48)
[2019-11-15] MEDS: SUCRALFATE 1 GM TAB PO SCH ×2 (09:15→16:48)
[2019-11-15] MEDS: METOPROLOL TARTRATE 50 MG TAB PO SCH ×2 (09:15→16:49)
--- NOTE | 2019-11-15 09:40 | NUR ---
Mechanical Cad Drafter called pt's room to provided support - no answer. JANES Rangel [facility] Department O: [phone]
[2019-11-15] MEDS ORDERED: FUROSEMIDE 40 MG TAB PO SCH (09:45)
--- NOTE | 2019-11-15 09:57 | Progress Note ---
DATE: 11/14/2019 Cardiology Progress Note. SUBJECTIVE: Nursing reports elevation of heart rate and worsening shortness of breath via exertion, atrial fibrillation with RVR episodes noted during exertion. No any other complaints. OBJECTIVE: VITAL SIGNS: Temperature 97.5, pulse 84, respiratory rate 18, blood pressure 148/64, oxygen saturation 98% on 2 L nasal cannula. CARDIOVASCULAR MEDICATIONS: Metoprolol 50 mg p.o. b.i.d., digoxin 0.125 mg p.o. daily, and apixaban 2.5 mg p.o. b.i.d. LABORATORY DATA: Sodium 146, potassium 4.4, BUN 70, creatinine 2.70. BNP from yesterday 1348.9. IMPRESSION: 1. Atrial fibrillation with moments of rapid ventricular response. 2. Elevated BNP. 3. Acute on chronic renal failure. 4. Bilateral pneumonia COVID-19 infection. 5. Hypothyroidism. 6. Hypertension. RECOMMENDATIONS: Continue the above-listed cardiac medications. Volume management per global risk management director. Would benefit from gentle diuresis. Digoxin added for better rate control. We will continue to monitor closely on telemetry. Medications adjusted accordingly. No further ischemic evaluation indicated at this time as of cardiac enzymes were negative during this admission. We will continue to follow this patient very closely. Dictated by Genie Ybarra NP MD ANABELA LackeyV/AVILA /[id number]
--- NOTE | 2019-11-15 10:45 | NUR ---
dicated dc abx
--- NOTE | 2019-11-15 11:42 | Progress Note ---
DATE: 11/15/2019 SUBJECTIVE: Followed for acute kidney injury on chronic kidney disease stage 4. Creatinine has stabilized around 2.29 to 2.3 mg/dL. The patient's COVID-19 infection is fully improving. No nausea. No vomiting. Shortness of breath has improved. The patient is on 98% O2 saturation on 2 L nasal cannula. OBJECTIVE: VITAL SIGNS: Blood pressure is stable on vitals of 152/66, 84 pulse, 22 respirations, afebrile. LUNGS: Rales in bilateral lung queen. CARDIOVASCULAR: S1, S2. No rub. ABDOMEN: Soft. Positive bowel sounds. EXTREMITIES: No edema. LABORATORY DATA: Potassium is 4.5, BUN 76, creatinine is 2.29, and glucose is 127. Hemoglobin 9.1 and hematocrit 28.7. IMPRESSION AND PLAN: 1. Acute kidney injury on chronic kidney disease stage 4, appears to be stabilizing around 2.3 mg/dL creatinine baseline. Acute kidney injury has resolved. 2. Hypertension. Blood pressure is currently more or less stable. 3. Coronavirus disease-19 infection, slowly improving symptomatically. 4. Fluid overload/pulmonary vascular congestion. We will consider placing on scheduled oral Lasix. Zac Daley MD TH/MODL /[id number]
--- NOTE | 2019-11-15 12:13 | Progress Note ---
DATE: SUBJECTIVE: Ms. Bullard lying in bed comfortably. She still has some shortness of breath. No chest pain. Her heart rate is 84, regular. Temperature is afebrile. Her blood pressure is 148/64, O2 saturation is 98 on 2 L. PHYSICAL EXAMINATION: GENERAL: She is currently alert, oriented, does not seem to be in acute distress. VITAL SIGNS: Stable and afebrile. HEENT: She is not icteric. NECK: Supple. CHEST: Clear bilateral. COR: S1 and S2. ABDOMEN: Soft. MEDICATIONS: The patient currently on oxygen, dexamethasone, Eliquis and digoxin. LABORATORY DATA: Her cultures are negative. Her white count is 9.52, hemoglobin 9.1. Sodium 143, potassium 4.5 with a creatinine of 2.29. IMPRESSION: COVID-19 present on admission. Atrial fibrillation, chronic kidney disease, concerned about community-acquired pneumonia. She is currently on digoxin, Eliquis, and dexamethasone. We will finish 3 days of azithromycin, we will stop it today. We will discontinue Rocephin tomorrow. We will discontinue antibiotic today and then reassess. MD DANETTE Heller/AVILA /[id number]
--- NOTE | 2019-11-15 16:13 | NUR ---
IM-progress note O/N see below ROS: unreliable v/s; revd PE tired appearing anicteric ns1s2 REDUCED BS soft nt nd no e/t skin dry flat affect awake labs/meds revd A/P; Acute resp failure- abx; O2; steroids Multifocal PNA- IV abx Hyperkalemia- recheck KALLIE- IVF; recheck Physical deconditioning- PT Prop: heparin BID Dipso: monitor closely; f/u COVID testing; 11-12-19 Resp improving; CKD4 with KALLIE component; U/S does show medicorenal ds. Rapid HR- give AV blockade; check 12 lead EKG. 11-12 A.fib with RVR overnight- cardio consulted; echo ordered; eliquis for AC. 11-13 cont supportive care; HR controlled; CKD4. 11-14 cont care; dc planning Abdifatah Mays MD, PhD.
--- NOTE | 2019-11-15 18:29 | Progress Note ---
DATE: 11/15/2019 Cardiology Progress Note SUBJECTIVE: The patient denies chest pain or shortness of breath. She remains on 2 L nasal cannula. Patient discussed with nursing staff. OBJECTIVE: VITAL SIGNS: Temperature 97.2 degrees, pulse 81, respiratory rate is 22, blood pressure 138/61, and oxygen saturation 99% on 2 L nasal cannula. The patient was not examined due to isolation for COVID-19. CARDIAC MEDICATIONS: 1. Furosemide 40 mg p.o. daily. 2. Digoxin 0.125 mg p.o. q.a.m. 3. Metoprolol tartrate 100 mg p.o. b.i.d. 4. Apixaban 2.5 mg p.o. b.i.d. 5. Levothyroxine 75 mcg p.o. daily. LABORATORY DATA: WBCs 9.52, hemoglobin 9.1, hematocrit 28.7, and platelets 313. Sodium 143, potassium 4.5, chloride 110, CO2 of 21, BUN 76, and creatinine 2.29. Telemetry was personally reviewed and interpreted, revealing atrial fibrillation. IMPRESSION: 1. Atrial fibrillation. 2. COVID-19 pneumonia. 3. Elevated BNP. 4. Inoom-mv-lmjrshz kidney disease. 5. Hypothyroidism. 6. Hypertension. RECOMMENDATIONS: The patient has been started on diuretics by Nephrology. Monitor creatinine closely. Volume management per Nephrology given cdowc-tv-xrgdsjs kidney disease. Continue current cardiac medications. Monitor on telemetry. Blood pressure is borderline for her age. We will monitor closely. No further cardiac evaluation is indicated at this time as she has ruled out for myocardial infarction. Thank you for this consult. We will continue to follow. Marya Peñaloza MD [facility]/MODL /[id number]
--- NOTE | 2019-11-15 19:18 | NUR ---
SHIFT REPORT GIVEN TO ON COMING NIGHT NURSE. PATIENT IN STABLE CONDITION, NO S/S OF DISTRESS NOTED. TELEMETRY APPLIED BED IN LOWEST POSITION AND LOCKED. CALL LIGHT WITHIN REACH.
--- NOTE | 2019-11-15 20:20 | NUR ---
PATIENT RECEIVED. PATIENT IS RESTING IN BED, AAOX3. RESP EVEN AND UNLABORED. NO C/O SOB OR DISTRESS NOTED AT THIS TIME. TELE IN PLACE. CALL LIGHT WITHIN REACH. INSTRUCT TO CALL FOR ASSISTANCE. BED LOW/LOCKED. SIDE RAIL UP X2. CONTINUE TO MONITOR CLOSELY
[2019-11-15] MEDS: GUAIFENESIN/CODEINE 10 ML CUP PO PRN (21:00)
[2019-11-16] VITALS (7 sets, daily range): BP systolic 130–167; BP diastolic 51–86
[2019-11-16 04:59] LABS: ANION GAP 15.3 mmol/L (8-16); CALCIUM 8.6 mg/dL (8.4-10.2); CREATININE, SERUM 2.12 mg/dL (0.57-1.11); POTASSIUM 4.3 mmol/L (3.5-5.1)
[2019-11-16] MEDS: LEVOTHYROXINE SODIUM 75 MCG TAB PO SCH (05:10)
--- NOTE | 2019-11-16 06:50 | NUR ---
RESPONDED TO BED ALARM. PATIENT ALREADY WALKED CLOSE BY THE RESTROOM. ASSISTED PATIENT TO RESTROOM AND BACK TO BED. O2 SAT CHECKED 76% WHEN PATIENT GOT BACK TO BED. INCREASE O2 AT THIS TIME. PATIENT IS STABLE AT 4L 94%. CONTINUE TO MONITOR CLOSELY
[2019-11-16] MEDS: FERROUS SULFATE 325 MG TAB PO SCH ×2 (08:41→16:20)
[2019-11-16] MEDS: SUCRALFATE 1 GM TAB PO SCH ×2 (08:41→16:20)
[2019-11-16] MEDS: CHOLECALCIFEROL 400 UNIT TAB PO SCH (08:41)
[2019-11-16] MEDS: ASCORBIC ACID 500 MG TAB PO SCH ×2 (08:41→16:20)
[2019-11-16] MEDS: APIXAB 2.5 MG TABLET PO SCH ×2 (08:41→16:20)
[2019-11-16] MEDS: ZINC SULFATE 50 MG CAP PO SCH (08:42)
[2019-11-16] MEDS: DIGOXIN 0.125 MG TAB PO SCH (08:51)
[2019-11-16] MEDS: METOPROLOL TARTRATE 50 MG TAB PO SCH ×2 (08:51→16:20)
--- NOTE | 2019-11-16 08:57 | Progress Note ---
DATE: SUBJECTIVE: The patient became dizzy while walking to the bathroom last night. She also desaturated and her oxygen was increased to 5 L. She still complains of a dry mouth and feeling fatigued. She has some dyspnea with exertion. PHYSICAL EXAMINATION: VITAL SIGNS: The blood pressure is 160/75 and the saturation is now 98% on 5 L. Her pulse is 60. She is irregularly irregular rhythm. Respiratory rate is normal. HEENT: Shows no facial swelling or erythema. CARDIAC: Reveals regular rate and rhythm with normal S1 and S2. LUNGS: Auscultation of lungs reveals clear breath sounds bilaterally. There is no wheezing. ABDOMEN: Soft and nontender. There is no rebound or guarding. EXTREMITIES: Shows no leg edema or calf tenderness. There is no cyanosis or clubbing. LABORATORY DATA: White blood cell count 9.5 and hemoglobin is 9.1. The platelet count is 313. The BUN to creatinine ratio is 77 to 2.12. Carbon dioxide is 20. RADIOGRAPHIC DATA: Chest x-ray shows opacity in the left retrocardiac area. IMPRESSION: 1. Viral pneumonia and coronavirus disease-2019 infection. 2. Atrial fibrillation. 3. Xvtay-gv-oktetfo renal failure. 4. Hypertension. 5. Chronic diastolic heart failure. PLAN: 1. Continue current antibiotics. 2. Continue dexamethasone. 3. Continue to monitor BUN and creatinine. 4. Continue anticoagulation. Hero Russell MD [facility]/MODL /[id number]
[2019-11-16] MEDS: DEXAMETHASONE PHOS 4MG/ML 5ML MULTIDOSE VIAL IV SCH (09:55)
--- NOTE | 2019-11-16 12:53 | NUR ---
IM-progress note O/N see below ROS: unreliable v/s; revd PE tired appearing anicteric ns1s2 REDUCED BS soft nt nd no e/t skin dry flat affect awake labs/meds revd A/P; Acute resp failure- abx; O2; steroids Multifocal PNA- IV abx Hyperkalemia- recheck KALLIE- IVF; recheck Physical deconditioning- PT Prop: heparin BID Dipso: monitor closely; f/u COVID testing; 11-12-19 Resp improving; CKD4 with KALLIE component; U/S does show medicorenal ds. Rapid HR- give AV blockade; check 12 lead EKG. 11-12 A.fib with RVR overnight- cardio consulted; echo ordered; eliquis for AC. 11-13 cont supportive care; HR controlled; CKD4. 11-14 cont care; dc planning 11-15 d/c planning; Abdifatah Mays MD, PhD.
--- NOTE | 2019-11-16 13:58 | NUR ---
Spoke to pt's daughter Elida Choi ([phone]) with [employer] regarding home oxygen order. She gave choice for [facility]. Signed choice letter placed in front of chart. Explained to pt's daughter that portable tank will be delivered and they would need to call the office number on the tank for delivery of concentrator. IMM letter discussed. She verbalized understanding. Signed copy placed in chart. Copy given to [employer] to give to pt. Referral was faxed to [facility] at [phone]. Tristen sandhu [facility] was notified of referral.
--- NOTE | 2019-11-16 13:59 | Progress Note ---
DATE: SUBJECTIVE: The patient is seen and evaluated. Discussed with the nurse. Available labs and notes reviewed. The patient remains at 3 L of oxygen and states that she is doing fine. The patient desats easily without oxygen. Home O2 may be in progress for set up per my discussion with staff. PHYSICAL EXAMINATION: VITAL SIGNS: Temperature 97.5, pulse is 70, respirations 20, and blood pressure 159/61. GENERAL: Alert and oriented. No acute distress. Comfortably in bed. CV: S1 and S2. CHEST: Decreased breath sounds. Equal expansion. No acute distress. ABDOMEN: Soft and nontender. HEENT: Moist. No pallor. No JVD. MEDICATIONS: Reviewed and from ID point of view, the patient is on dexamethasone, zinc sulfate, Eliquis, and vitamin C. LABORATORY STUDIES: White count of 9.52 and platelet 313. Creatinine 2.12. Serology; coronavirus-19 PCR positive, 11/12. MICROBIOLOGY: Blood culture negative on 11/09. RADIOLOGY STUDIES: No new radiology studies available. ASSESSMENT AND PLAN: 1. COVID-19, present on admission. 2. Atrial fibrillation. 3. Chronic kidney disease. 4. Community-acquired pneumonia. 5. The patient is status post Zithromax and Rocephin, continue with dexamethasone. The patient is currently on 3 L of oxygen. Continue to monitor the patient clinically and follow with the labs. Further management of this patient is based on daily findings on laboratory and physical examination. Please refer to chart for more information. Dictated by Bandar Osorio PA-C (Al) Sky Santa MD /MODL /[id number]
--- NOTE | 2019-11-16 15:04 | NUR ---
Portable oxygen was delivered and given to KIMBERLY King.
--- NOTE | 2019-11-16 16:04 | NUR ---
Nutrition Intervention Note RD Recommendation(s) for Physician: - Continue Cardiac diet - Recommend Ensure Compact TID Plan of Care: RD following, monitoring for tolerance and adequacy, ONS Nutrition reason for involvement: Early LOS RD Assessment 11/15: 84 YOF admitted for ARDS and COVID-19. Pt evaluated today for LOS. Attempted to call pt room x2, no answer. No reported wt loss or poor intake per admit notes. Noted pt currently eating 25-50% of meals. No GI distress reported per air brakes inspector. Chart reviewed. Will continue to monitor. Principal Problems/Diagnoses: ARDS, COVID-19 PMH: hypothyroidism, HTN, anemia, GERD GI: LBM 11/13 Skin: intact Labs: 11/15: Na 143, K 4.3, BUN 77, Cr 2.12, Gluc 122, Ca 8.6 Meds: zofran, synthroid, dexamethasone, digoxin, zinc sulfate, carafate, feosol, vitamin D, vitamin C Ht: 63 in Wt: 130.56 lb BMI: 23.1 kg/m2 IBW: 115 lb Malnutrition Evaluation (11/16/19) The patient does not meet criteria for a specified degree of malnutrition at this time. Will re-evaluate at follow-up as appropriate. Energy intake: <50% of estimated energy requirements for >5 days Weight loss: JALEESA Fat loss: unable to evaluate Muscle loss: unable to evaluate Supporting Evidence: Fluid accumulation: JALEESA Functional Status: JALEESA Nutrition Prescription (Diet Order): Cardiac Estimated Nutritional Needs: 5203-6035 calories/day (25-30 kcal/kg CBW) 130.56 lb 59-89 g protein/day (1-1.5 g pro/kg CBW) 130.56 lb Diet Adequacy: Not meeting calorie needs, Not meeting protein needs Diet Tolerance: tolerating po Diet Education Needs Assessment: Diet education not indicated at this time. Nutrition Care Level: low Nutrition Diagnosis: Inadequate energy and protein intake related to current medical conditions as evidenced by not meeting needs per current po intake. Goal: Patient will meet 75-100% of estimated needs by follow up Progress: N/A Interventions: -General healthful diet, fat, mineral, texture modified diet, Commercial beverage, Prescription medications, Multivitamin/mineral supplement therapy, Monitoring/Evaluation: -Total energy intake, Total protein intake, Formula/Solution, Modified diet, Liquid supplement, Weight change Signed: Megan Gibson RD, LD, CNSC
[2019-11-16] MEDS: GUAIFENESIN/CODEINE 10 ML CUP PO PRN ×2 (16:20→20:36)
--- NOTE | 2019-11-16 19:10 | NUR ---
Report given to oncoming nurse of patients status. Resting in bed. No s/s of acute distress noted. O2 3L NC. Side rails upx2, call light within reach, bed alarm on
--- NOTE | 2019-11-16 19:15 | NUR ---
received report from day nurse. patent is resting comfortably in the bed. bed is in the lowest position and call light is within reach. will continue to monitor patient.
--- NOTE | 2019-11-16 20:05 | Progress Note ---
DATE: 11/16/2019 Renal Progress Note SUBJECTIVE: Followed for acute kidney injury on chronic kidney disease stage 4. Creatinine continues to improve. Creatinine is down to 2.12. Improvement of COVID has allowed for improvement in kidney function. The patient at baseline likely does have CKD. No nausea, no vomiting. Shortness of breath is improving. OBJECTIVE: VITAL SIGNS: Blood pressure 159/61. The patient is afebrile. LUNGS: Have rales at bases bilaterally. CARDIOVASCULAR: S1, S2. No rub ABDOMEN: Soft, nontender. EXTREMITIES: No edema. LABORATORY DATA: Potassium 4.3, CO2 is 20, BUN is 77, and creatinine is 2.1. IMPRESSION AND PLAN: 1. Acute kidney injury on chronic kidney disease stage 4. The patient's acute kidney injury continues to improve as the COVID infection is improving. At baseline, has chronic kidney disease. We will continue to monitor closely. 2. Hypertension. Blood pressure is currently stable. Continue to monitor closely. 3. Anemia of chronic disease, stable H and H. 4. Congestive heart failure history. Continue oral Lasix. 5. COVID-19 positive. Continue plan per primary and pulmonology recommendation. Zac Daley MD TH/MODL /[id number]
[2019-11-17] VITALS (9 sets, daily range): BP systolic 137–167; BP diastolic 47–84
--- NOTE | 2019-11-17 01:00 | NUR ---
patient 02 dropped to 87% on 2L via nasal cannula. Unable to raise oxygen saturation with nasal cannula hence high flow nasal cannula was used. With high flow cannula at 8L we were able to raise O2 sat to 93%. Attending MD was notified of this change when he made his rounds on the unit.
[2019-11-17 05:45] LABS: ALBUMIN 2.9 g/dL (3.5-5.0); ALBUMIN/GLOBULIN RATIO 0.8 (0.8-2.0); ANION GAP 14.1 mmol/L (8-16); BASOPHILS % 0.2 % (0.0-1.0); CALCIUM 8.5 mg/dL (8.4-10.2); CREATININE, SERUM 2.02 mg/dL (0.57-1.11); EOSINOPHILS % 0.1 % (0.0-6.0); HEMATOCRIT 32.6 % (34.2-44.1); HEMOGLOBIN 10.1 g/dL (12.0-16.0); LYMPHOCYTES # (AUTO) 1.1 (1.0-3.2); LYMPHOCYTES % 8.1 % (18.0-39.1); MEAN CORPUSCULAR HEMOGLOBIN 27.7 pg (28-32); MEAN CORPUSCULAR VOLUME 89.3 fL (81-99); MONOCYTES # (AUTO) 0.6 (0.2-0.8); MONOCYTES % 4.5 % (4.4-11.3); NEUTROPHILS # (AUTO) 11.6 (2.1-6.9); NEUTROPHILS % 84.3 % (38.7-80.0); PLATELET COUNT 402 x10e3/uL (140-360); POTASSIUM 4.1 mmol/L (3.5-5.1); RED BLOOD COUNT 3.65 x10e6/uL (3.6-5.1); RED CELL DISTRIBUTION WIDTH 12.5 % (11.7-14.4)
[2019-11-17] MEDS: LEVOTHYROXINE SODIUM 75 MCG TAB PO SCH (06:04)
--- NOTE | 2019-11-17 07:55 | NUR ---
Patient walked to bathroom with O2 8L High flow NC. SPO2 dropped to 87%. O2 increased to 10L NC which increased SPO2 to 92%
[2019-11-17] MEDS: ZINC SULFATE 50 MG CAP PO SCH (08:05)
[2019-11-17] MEDS: APIXAB 2.5 MG TABLET PO SCH ×2 (08:05→16:05)
[2019-11-17] MEDS: FERROUS SULFATE 325 MG TAB PO SCH ×2 (08:05→16:05)
[2019-11-17] MEDS: DIGOXIN 0.125 MG TAB PO SCH (08:05)
[2019-11-17] MEDS: CHOLECALCIFEROL 400 UNIT TAB PO SCH (08:05)
[2019-11-17] MEDS: SUCRALFATE 1 GM TAB PO SCH ×2 (08:05→16:05)
[2019-11-17] MEDS: METOPROLOL TARTRATE 50 MG TAB PO SCH ×2 (08:05→16:06)
[2019-11-17] MEDS: ASCORBIC ACID 500 MG TAB PO SCH ×2 (08:05→16:05)
--- NOTE | 2019-11-17 08:41 | Diagnostic Imaging Report ---
EXAMINATION: CHEST SINGLE (PORTABLE) INDICATION: ^viral pneumonia ^[id number] ^[id number]. COMPARISON: 11/13/2019 FINDINGS: AP view TUBES and LINES: None. LUNGS: Ill-defined patchy opacities in the bilateral lungs are not significantly changed. PLEURA: No pleural effusion or pneumothorax. HEART AND MEDIASTINUM: The cardiomediastinal silhouette is stable. BONES AND SOFT TISSUES: No acute osseous lesion. Soft tissues are unremarkable. UPPER ABDOMEN: No free air under the diaphragm. IMPRESSION: No interval change. Signed by: Jarrett Johnson MD on 11/17/2019 8:38 AM
--- NOTE | 2019-11-17 09:30 | NUR ---
Devon Law PA aware of SPO2 drop this AM
[2019-11-17] MEDS: DEXAMETHASONE PHOS 4MG/ML 5ML MULTIDOSE VIAL IV SCH (10:16)
--- NOTE | 2019-11-17 11:33 | Progress Note ---
DATE: SUBJECTIVE: The patient is seen and evaluated. Available labs and notes reviewed. The patient remains in a COVID unit, complained of nausea and per my discussion with the staff her O2 requirement has gone up to 4 L. She seems to be a little bit short of breath, but no acute distress. MEDICATIONS: Medication list is reviewed. From ID point of view, the patient is on dexamethasone, zinc sulfate, Eliquis, vitamin C, and vitamin D3. The patient is status post five days of Zithromax and also the patient had Rocephin. LABORATORY STUDIES: White count of 13.8, hemoglobin 10.1, and platelet 402. Sodium 144, potassium 4.1, and creatinine 2.02. MICROBIOLOGY: Blood culture negative five days. Chest x-ray from today showed no interval change. PHYSICAL EXAMINATION: VITAL SIGNS: Temperature 97.4, pulse 82, respirations 19, blood pressure 137/72, and O2 saturation is 93% on 10 L. GENERAL: Alert and oriented, slightly short of breath, on 10 L of oxygen saturating 93%. CV: S1-S2. CHEST: Equal expansion. Decreased breath sounds. ABDOMEN: Soft. Nontender. No distention. HEENT: Moist. No pallor. No JVD. EXTREMITIES: Weak. ASSESSMENT AND PLAN: 1. Coronavirus disease-19 positive, presented on admission. 2. Worsening of shortness of breath. 3. Leukocytosis. 4. Atrial fibrillation. 5. Chronic kidney disease. 6. Community-acquired pneumonia. The patient is status post Zithromax and Rocephin, remains on dexamethasone. Oxygen has increased from 3-10 L today. Discussed with Respiratory therapy. Discussed with Dr. Santa. Please refer to chart for more information. Dictated by Bandar Osorio PA-C (Al) Sky Santa MD /MODL /[id number]
[2019-11-17] MEDS ORDERED: SODIUM CHLORIDE 0.9% 250ML 250 ML ONE (12:33)
[2019-11-17] MEDS: CEFEPIME 1GM/NS 0.9% 50 ML 50 ML IV SCH (12:37)
--- NOTE | 2019-11-17 13:28 | Progress Note ---
DATE: 11/17/2019 Nephrology Followup Note SUBJECTIVE: The patient is in isolation from COVID-19. Phone visit not possible due to absence of any [place] translators at this time. I did speak with Dr. Sky Santa, the Infectious Disease physician oral surgery assistant. The patient's oxygenation needs have gone up to 10 L/minute since yesterday. Probable aspiration pneumonia. OBJECTIVE: VITAL SIGNS: Blood pressure is stable 132/72, pulse 82 per minute. She is afebrile. The rest of the exam is reportedly unchanged. LABORATORY DATA: White count 13.8, hemoglobin 10.1. Serum creatinine continuing to improve now at 2.02, BUN 73. Electrolytes stable. Potassium 4.1. IMPRESSION: 1. Acute kidney injury, continuing to resolve. 2. Hypertension, under control on metoprolol 100 mg b.i.d. Continue same for now. 3. Coronavirus disease-19 induced lung injury and bacterial pneumonia, being treated by primary team and Infectious Disease. Kyler Cates MD [facility]/MODL /[id number]
[2019-11-17] MEDS: METRONIDAZOLE 500MG/NS 100ML 100 ML IV SCH ×2 (14:16→22:26)
--- NOTE | 2019-11-17 16:29 | Progress Note ---
DATE: SUBJECTIVE: The patient is requiring oxygen today. Oxygen has been increased to 10 L. She has some cough. She has no chest pain. She is not having any vomiting or diarrhea. PHYSICAL EXAMINATION: VITAL SIGNS: Blood pressure is 149/47, saturation is 96% on 10 L. HEENT: Shows no facial swelling or erythema. CARDIAC: Regular rate and rhythm with normal S1, S2. LUNGS: Auscultation of lungs reveals rhonchorous breath sounds bilaterally. There is no wheezing. ABDOMEN: Soft, nontender. There is no rebound or guarding. EXTREMITIES: No leg edema or calf tenderness. There is no cyanosis or clubbing. SKIN: No rashes. NEUROLOGICAL: No focal abnormalities. LABORATORY DATA: White blood cell count is 13.8 and hemoglobin is 10.1. The platelet count is 402. The BUN to creatinine ratio is 73 to 2.02. Carbon dioxide is 21. Other electrolytes are within normal limits. Albumin is 2.9. RADIOGRAPHIC DATA: Chest x-ray shows bilateral opacities. IMPRESSION: 1. Acute respiratory failure. 2. Viral pneumonia and coronavirus disease-19 infection. 3. Atrial fibrillation. 4. Acute on chronic renal failure. 5. Hypertension. 6. Chronic diastolic heart failure. PLAN: 1. Continue dexamethasone. 2. Continue high-flow oxygen. 3. Continue to monitor BUN and creatinine. 4. Continue anticoagulation. MD YUNIOR Malhotra/GIOVANNYL /[id number]
--- NOTE | 2019-11-17 18:56 | NUR ---
Report given to oncoming nurse of patients status. Resting in bed. AAOX3 to time, person,place. Respirations even and unlabored. O2 10L high flow NC. Side rails upx2, call light within reach, bed alarm on.
--- NOTE | 2019-11-17 20:02 | NUR ---
PATIENT IS ON HIGH FLOW OXYGEN AT 10L/MIN. NO COMPLAIN OF SHORTNESS OF BREATH. SIDE RAILS UP, BED ALARM IS ON.
--- NOTE | 2019-11-17 21:46 | NUR ---
IM-progress note O/N see below ROS: unreliable v/s; revd PE tired appearing anicteric ns1s2 REDUCED BS soft nt nd no e/t skin dry flat affect awake labs/meds revd A/P; Acute resp failure- abx; O2; steroids Multifocal PNA- IV abx Hyperkalemia- recheck KALLIE- IVF; recheck Physical deconditioning- PT Prop: heparin BID Dipso: monitor closely; f/u COVID testing; 11-12-19 Resp improving; CKD4 with KALLIE component; U/S does show medicorenal ds. Rapid HR- give AV blockade; check 12 lead EKG. 11-12 A.fib with RVR overnight- cardio consulted; echo ordered; eliquis for AC. 11-13 cont supportive care; HR controlled; CKD4. 11-14 cont care; dc planning 11-15 d/c planning; - SNF pending; Abdifatah Mays MD, PhD.
[2019-11-18] VITALS (8 sets, daily range): BP systolic 150–163; BP diastolic 50–86
[2019-11-18] MEDS: LEVOTHYROXINE SODIUM 75 MCG TAB PO SCH (05:37)
[2019-11-18] MEDS: METRONIDAZOLE 500MG/NS 100ML 100 ML IV SCH ×3 (05:37→22:03)
[2019-11-18 05:38] LABS: BASOPHILS % 0.3 % (0.0-1.0); EOSINOPHILS % 0.1 % (0.0-6.0); HEMOGLOBIN 10.2 g/dL (12.0-16.0); LYMPHOCYTES # (AUTO) 0.9 (1.0-3.2); LYMPHOCYTES % 8.1 % (18.0-39.1); MEAN CORPUSCULAR HEMOGLOBIN 28.5 pg (28-32); MEAN CORPUSCULAR HGB CONC 28.3 g/dL (31-35); MEAN CORPUSCULAR VOLUME 100.6 fL (81-99); MONOCYTES # (AUTO) 0.6 (0.2-0.8); MONOCYTES % 5.8 % (4.4-11.3); NEUTROPHILS # (AUTO) 8.9 (2.1-6.9); NEUTROPHILS % 81.3 % (38.7-80.0); PLATELET COUNT 364 x10e3/uL (140-360); RED BLOOD COUNT 3.58 x10e6/uL (3.6-5.1); RED CELL DISTRIBUTION WIDTH 12.5 % (11.7-14.4)
[2019-11-18 05:41] LABS: ALBUMIN 2.7 g/dL (3.5-5.0); ALBUMIN/GLOBULIN RATIO 0.7 (0.8-2.0); ANION GAP 19.5 mmol/L (8-16); CALCIUM 8.5 mg/dL (8.4-10.2); CREATININE, SERUM 2.22 mg/dL (0.57-1.11); POTASSIUM 4.5 mmol/L (3.5-5.1)
--- NOTE | 2019-11-18 07:36 | NUR ---
PATIENT IN BED RESTING WITH NO S/S OF DISTRESS. HIGH FLOW O2 IN PLACE. BED IN LOWER POSITION, CALL LIGHT AT REACH.
[2019-11-18] MEDS ORDERED: CEFEPIME HCL 1 GM VIAL IV SCH (09:00)
[2019-11-18] MEDS: METOPROLOL TARTRATE 50 MG TAB PO SCH ×3 (09:00→17:29)
[2019-11-18] MEDS: SUCRALFATE 1 GM TAB PO SCH ×2 (09:04→17:28)
[2019-11-18] MEDS: APIXAB 2.5 MG TABLET PO SCH ×2 (09:04→17:28)
[2019-11-18] MEDS: FERROUS SULFATE 325 MG TAB PO SCH ×2 (09:04→17:28)
[2019-11-18] MEDS: ASCORBIC ACID 500 MG TAB PO SCH ×2 (09:04→17:29)
[2019-11-18] MEDS: DIGOXIN 0.125 MG TAB PO SCH (09:04)
[2019-11-18] MEDS: ZINC SULFATE 50 MG CAP PO SCH (09:05)
[2019-11-18] MEDS: CHOLECALCIFEROL 400 UNIT TAB PO SCH (09:05)
[2019-11-18] MEDS: DEXAMETHASONE PHOS 4MG/ML 5ML MULTIDOSE VIAL IV SCH (09:20)
--- NOTE | 2019-11-18 10:32 | Diagnostic Imaging Report ---
EXAMINATION: CHEST SINGLE (PORTABLE) INDICATION: Respiratory failure COMPARISON: Chest radiograph 11/17/2019 FINDINGS: LINES/TUBES:EKG leads overlie the chest. LUNGS:Unchanged left basilar opacities. PLEURA:No pleural effusion or pneumothorax. MEDIASTINUM:The cardiomediastinal silhouette appears unchanged in size and shape. BONES/SOFT TISSUES:No acute osseous injury. ABDOMEN:No free air under the diaphragm. IMPRESSION: No significant interval change. Signed by: Jaelyn Boyd MD on 11/18/2019 10:28 AM
--- NOTE | 2019-11-18 11:23 | Progress Note ---
DATE: SUBJECTIVE: The patient is seen and evaluated with the nurse in her room. No new events. Overall, no significant change. Remains on 10 L of nasal cannula. Saturation of 93% to 98%. No obvious acute finding. PHYSICAL EXAMINATION: VITAL SIGNS: Temperature 97.5, pulse 68, respirations 19, and blood pressure 152/50. GENERAL: Alert and oriented, weak, seems to be short of breath. No obvious acute finding. Overall looks the same. CV: S1 and S2. CHEST: Equal expansion. Decreased breath sounds. No acute distress. ABDOMEN: Soft and nontender. HEENT: Moist. No pallor. No JVD. EXTREMITIES: Weak. MEDICATIONS: Reviewed and from ID point of view, the patient is on dexamethasone, zinc sulfate, vitamin D3, vitamin C, Flagyl, and cefepime. LABORATORY STUDIES: White count 10.92, hemoglobin 10.2, and platelet 364. Sodium 147, potassium 4.5, and creatinine 2.22. No new serology. No new microbiology. Chest x-ray from today, no significant interval change. ASSESSMENT AND PLAN: 1. COVID-19. 2. Shortness of breath, stable today. It was getting worse yesterday with leukocytosis infection. Started on cefepime and Flagyl with a concern of aspiration pneumonia. Leukocytosis is improved. 3. Chronic kidney disease. 4. Continue with antibiotics; dexamethasone, vitamin C, and zinc sulfate. Monitor the patient clinically and follow with the labs. Discussed with Dr. Santa. Dictated by Bandar Osorio PA-C (Al) Sky Santa MD /MODL /[id number]
--- NOTE | 2019-11-18 11:39 | NUR ---
PATIENT ASSISTED TO RESTRROOM AND BACK TO BED, HIGH FLOW O2 IN PLACE. BED IN LOWER POSITION, CALL LIGHT AT REACH.
[2019-11-18] MEDS: CEFEPIME 1GM/NS 0.9% 50 ML 50 ML IV SCH (12:00)
--- NOTE | 2019-11-18 13:03 | Progress Note ---
DATE: SUBJECTIVE: The patient still has some dyspnea. She is now on 10 L of oxygen. PHYSICAL EXAMINATION: VITAL SIGNS: The blood pressure is 152/50 and saturation is 93%. Pulse is 63. HEENT: Shows no facial swelling or erythema. CARDIAC: Reveals irregularly irregular rhythm with normal S1 and S2. LUNGS: Auscultation of lungs reveals crackles at the bases. There is no wheezing. ABDOMEN: Soft and nontender. There is no rebound or guarding. EXTREMITIES: Shows no leg edema or calf tenderness. LABORATORY DATA: White blood cell count is 10.9 and the hemoglobin is 10.2. The platelet count is 364. BUN to creatinine ratio is 71 to 2.22 and the carbon dioxide is 14. Albumin is 2.7. RADIOGRAPHIC DATA: Chest x-ray shows bilateral pulmonary opacities. IMPRESSION: 1. Acute respiratory failure. 2. Viral pneumonia and COVID-19 infection. 3. Atrial fibrillation. 4. Ubvjv-tk-mjkaoch renal failure. 5. Chronic diastolic heart failure. PLAN: 1. Continue oxygen. 2. Continue dexamethasone. 3. Continue current antibiotics. 4. Continue anticoagulation. 5. Diuretics as needed. Hero Russell MD [facility]/MODL /[id number]
--- NOTE | 2019-11-18 13:53 | NUR ---
IM-progress note O/N see below ROS: unreliable v/s; revd PE tired appearing anicteric ns1s2 REDUCED BS soft nt nd no e/t skin dry flat affect awake labs/meds revd A/P; Acute resp failure- abx; O2; steroids Multifocal PNA- IV abx Hyperkalemia- recheck KALLIE- IVF; recheck Physical deconditioning- PT Prop: heparin BID Dipso: monitor closely; f/u COVID testing; 11-12-19 Resp improving; CKD4 with KALLIE component; U/S does show medicorenal ds. Rapid HR- give AV blockade; check 12 lead EKG. 11-12 A.fib with RVR overnight- cardio consulted; echo ordered; eliquis for AC. 11-13 cont supportive care; HR controlled; CKD4. 11-14 cont care; dc planning 11-15 d/c planning; 7- SNF pending - IMproving; await SNF Abdifatah Mays MD, PhD.
--- NOTE | 2019-11-18 15:25 | NUR ---
MD IN TO SEE PATIENT, NEW ORDER RECEIVED.
[2019-11-18] MEDS: SODIUM BICARBONATE 8.4% 150 ML in STERILE WATER IV SOLN 1,000 ML IV SCH (15:33)
--- NOTE | 2019-11-18 16:30 | Progress Note ---
DATE: 11/18/2019 Nephrology Followup Note SUBJECTIVE: The patient remains in isolation. Visit conducted through discussion with her nurse outside of her room. OBJECTIVE: GENERAL: The patient is sitting up, eating lunch. No respiratory distress. VITAL SIGNS: Blood pressure 150/86, afebrile. Oxygen saturation 95% on 10 L. LABORATORY DATA: Hemoglobin 10.2, white count 10.9, platelets 364,000. Serum chemistry show creatinine of 2.2, BUN 71, bicarb lower at 14, potassium 4.5, sodium 147. Chest x-ray reportedly stable. IMPRESSION: 1. Acute kidney injury, overall improved. 2. Hypertension, continue on metoprolol 100 mg b.i.d. 3. Hypernatremia and mild non-anion gap metabolic acidosis, may indicate mild dehydration. Will gingerly treat with sodium bicarbonate containing IV fluid. 4. Coronavirus induced pneumonia, described as stable to improving by ID and primary care. Kyler Cates MD /MODL /[id number]
[2019-11-19] VITALS (7 sets, daily range): BP systolic 125–179; BP diastolic 40–76
--- NOTE | 2019-11-19 01:31 | Progress Note ---
DATE: 11/18/2019 Cardiology Progress Note SUBJECTIVE: No major events overnight. Had some nonsustained ventricular tachycardia today. OBJECTIVE: VITAL SIGNS: Temperature afebrile, pulse 68, respiratory rate 22, blood pressure 158/53, saturating 96% on nasal cannula. GENERAL: Elderly female, in no acute distress. CARDIOVASCULAR: Regular rate and rhythm. No murmurs, rubs, or gallops. LUNGS: Coarse breath sounds bilaterally. ABDOMEN: Soft, nontender, nondistended. NEURO AND PSYCH: Not assessed. INPATIENT MEDICATIONS: Reviewed. LABORATORY DATA: Reviewed. TELEMETRY DATA: Reviewed, shows normal sinus rhythm with one episode of nonsustained VT. ASSESSMENT: 1. Paroxysmal atrial fibrillation. 2. Coronavirus disease-2019 pneumonia. 3. Elevated BNP. 4. Qvfyw-qi-ddprhcz kidney disease. 5. Nonsustained ventricular tachycardia. RECOMMENDATIONS: We will start low-dose metoprolol to help control ventricular tachycardia. Replete electrolytes as needed. Volume status per Nephrology. MD MARYJANE Clark/AVILA /[id number]
[2019-11-19] MEDS: METRONIDAZOLE 500MG/NS 100ML 100 ML IV SCH ×3 (05:34→22:22)
[2019-11-19] MEDS: LEVOTHYROXINE SODIUM 75 MCG TAB PO SCH (05:34)
[2019-11-19 05:44] LABS: BASOPHILS % 0.2 % (0.0-1.0); EOSINOPHILS % 0.2 % (0.0-6.0); HEMATOCRIT 29.4 % (34.2-44.1); HEMOGLOBIN 9.1 g/dL (12.0-16.0); LYMPHOCYTES # (AUTO) 0.9 (1.0-3.2); LYMPHOCYTES % 5.1 % (18.0-39.1); MEAN CORPUSCULAR HEMOGLOBIN 28.3 pg (28-32); MEAN CORPUSCULAR VOLUME 91.6 fL (81-99); MONOCYTES # (AUTO) 0.8 (0.2-0.8); MONOCYTES % 4.7 % (4.4-11.3); NEUTROPHILS # (AUTO) 14.9 (2.1-6.9); NEUTROPHILS % 87.3 % (38.7-80.0); PLATELET COUNT 342 x10e3/uL (140-360); RED BLOOD COUNT 3.21 x10e6/uL (3.6-5.1); RED CELL DISTRIBUTION WIDTH 12.8 % (11.7-14.4)
[2019-11-19 06:04] LABS: ALBUMIN 2.5 g/dL (3.5-5.0); ALBUMIN/GLOBULIN RATIO 0.7 (0.8-2.0); ANION GAP 16.3 mmol/L (8-16); CREATININE, SERUM 2.1 mg/dL (0.57-1.11); POTASSIUM 4.3 mmol/L (3.5-5.1)
--- NOTE | 2019-11-19 07:34 | NUR ---
PATIENT IN BED RESTING WITH HEAD OF BED ELEVATED, NO DISTRESS NOTED. HIGH FLOW O2 IN PLACE. IV FLUID INFUSING ORDERED. BED IN LOWER POSITION, CALL LIGHT AT REACH.
[2019-11-19] MEDS: ZINC SULFATE 50 MG CAP PO SCH (09:10)
[2019-11-19] MEDS: FERROUS SULFATE 325 MG TAB PO SCH ×2 (09:10→17:30)
[2019-11-19] MEDS: METOPROLOL TARTRATE 50 MG TAB PO SCH ×2 (09:10→17:30)
[2019-11-19] MEDS: CHOLECALCIFEROL 400 UNIT TAB PO SCH (09:10)
[2019-11-19] MEDS: SUCRALFATE 1 GM TAB PO SCH ×2 (09:10→17:30)
[2019-11-19] MEDS: DEXAMETHASONE PHOS 4MG/ML 5ML MULTIDOSE VIAL IV SCH (09:10)
[2019-11-19] MEDS: DIGOXIN 0.125 MG TAB PO SCH (09:10)
[2019-11-19] MEDS: APIXAB 2.5 MG TABLET PO SCH ×2 (09:10→17:30)
[2019-11-19] MEDS: ASCORBIC ACID 500 MG TAB PO SCH ×2 (09:10→17:30)
--- NOTE | 2019-11-19 11:11 | NUR ---
PATIENT ASSISTED TO THE BED SIDE COMMODE AND BACK TO BED. HAD A LARGE BM. BED IN LOWER POSITION AND LOCKED. CALL LIGHT AT REACH.
--- NOTE | 2019-11-19 12:06 | NUR ---
IM-progress note O/N see below ROS: unreliable v/s; revd PE tired appearing anicteric ns1s2 REDUCED BS soft nt nd no e/t skin dry flat affect awake labs/meds revd A/P; Acute resp failure- abx; O2; steroids Multifocal PNA- IV abx Hyperkalemia- recheck KALLIE- IVF; recheck Physical deconditioning- PT Prop: heparin BID Dipso: monitor closely; f/u COVID testing; 11-12-19 Resp improving; CKD4 with KALLIE component; U/S does show medicorenal ds. Rapid HR- give AV blockade; check 12 lead EKG. 11-12 A.fib with RVR overnight- cardio consulted; echo ordered; eliquis for AC. 11-13 cont supportive care; HR controlled; CKD4. 11-14 cont care; dc planning 11-15 d/c planning; 7- SNF pending 7-2 IMproving; await SNF 7-3 needs free water Abdifatah Mays MD, PhD.
[2019-11-19] MEDS: CEFEPIME 1GM/NS 0.9% 50 ML 50 ML IV SCH (12:44)
--- NOTE | 2019-11-19 15:00 | NUR ---
PATIENT NOTED WITH TAPE ON THE BACK OF HER NECK. PATIENT REFUSED THE TAPE TO BE REMOVED FOR ASSESSMENT.
[2019-11-19 15:24] LABS: ANION GAP 15.3 mmol/L (8-16); CALCIUM 7.9 mg/dL (8.4-10.2); CREATININE, SERUM 2.01 mg/dL (0.57-1.11); POTASSIUM 4.3 mmol/L (3.5-5.1)
--- NOTE | 2019-11-19 15:26 | NUR ---
BLOOD SPECIMEN DRAWN AND SENT TO THE LAB.
[2019-11-19] MEDS: SODIUM BICARBONATE 8.4% 150 ML in STERILE WATER IV SOLN 1,000 ML IV SCH (16:00)
--- NOTE | 2019-11-19 16:42 | NUR ---
Nutrition Intervention Note RD Recommendation(s) for Physician: - Continue current diet - Recommend Ensure Compact TID Plan of Care: RD following, monitoring for tolerance and adequacy, oral supplement recommendation Nutrition reason for involvement: follow up RD Assessment 11/18: Follow up. Chart reviewed. Attempted to call pt over the phone, but pt did not answer. It is recorded that pt continues with 25-50% meal intake. Recommend Ensure Compact TID. Will continue to monitor. 11/15: 84 YOF admitted for ARDS and COVID-19. Pt evaluated today for LOS. Attempted to call pt room x2, no answer. No reported wt loss or poor intake per admit notes. Noted pt currently eating 25-50% of meals. No GI distress reported per documentation billing clerk. Chart reviewed. Will continue to monitor. Principal Problems/Diagnoses: ARDS, COVID-19 PMH: hypothyroidism, HTN, anemia, GERD GI: flat, soft, non-tender abdomen Skin: intact Labs: 11/18: Na 149, BUN 72, Cr 2.10, Ca 8.0 11/15: Na 143, K 4.3, BUN 77, Cr 2.12, Gluc 122, Ca 8.6 Meds: antibiotics, zinc sulfate, metoprolol, dexmethasone, ferrous sulfate, vitamin D, vitamin C, levothyroxine, zofran Ht: 63 in Wt: 130.56 lb BMI: 23.1 kg/m2 IBW: 115 lb Malnutrition Evaluation (11/16/19) The patient does not meet criteria for a specified degree of malnutrition at this time. Will re-evaluate at follow-up as appropriate. Energy intake: <50% of estimated energy requirements for >5 days Weight loss: JALEESA Fat loss: unable to evaluate Muscle loss: unable to evaluate Supporting Evidence: Fluid accumulation: JALEESA Functional Status: JALEESA Nutrition Prescription (Diet Order): Cardiac/chopped meats Estimated Nutritional Needs: 7805-4144 calories/day (25-30 kcal/kg CBW) 130.56 lb 59-89 g protein/day (1-1.5 g pro/kg CBW) 130.56 lb Diet Adequacy: Not meeting calorie needs, Not meeting protein needs Diet Tolerance: unable to assess Diet Education Needs Assessment: Diet education not indicated at this time. Nutrition Care Level: low Nutrition Diagnosis: Inadequate energy and protein intake related to current medical conditions as evidenced by not meeting needs per current po intake. Goal: Patient will meet 75-100% of estimated needs by follow up Progress: not progressing Interventions: - fat, mineral, texture modified diet, Commercial beverage, Multivitamin/mineral supplement therapy Monitoring/Evaluation: -Total energy intake, Total protein intake, Modified diet, Liquid supplement, Weight change Signed: Hannah Ross RD, LD
--- NOTE | 2019-11-19 18:45 | Progress Note ---
DATE: SUBJECTIVE: The patient is still requiring high-flow oxygen. She has dyspnea with exertion. She has some cough. PHYSICAL EXAMINATION: VITAL SIGNS: The patient is afebrile. The blood pressure is 126/66 and the saturation is 97% on 10 L. T-max is 99.5 and the pulse is 75. HEENT: Shows no facial swelling or erythema. CARDIAC: Reveals regular rate and rhythm with normal S1 and S2. LUNGS: Auscultation of lungs reveals rhonchorous breath sounds bilaterally. There is no wheezing. ABDOMEN: Soft and nontender. There is no rebound or guarding. EXTREMITIES: Shows no leg edema or calf tenderness. There is no cyanosis or clubbing. SKIN: Shows no rashes. IMPRESSION: 1. Atrial fibrillation. 2. Viral pneumonia and COVID-19 infection. 3. Nztxf-zd-ermqneq kidney disease. PLAN: 1. Continue Decadron and antibiotics. 2. Continue Lovenox. 3. Repeat blood tests tomorrow. 4. Repeat chest x-ray tomorrow. 5. Continue to wean oxygen as tolerated. Hero Russell MD LM/GIOVANNYL /[id number]
--- NOTE | 2019-11-19 20:07 | NUR ---
received report from day nurse. patient is resting comfortably in the bed. bed is in the lowest position and call light is within reach. will continue to monitor patient.
--- NOTE | 2019-11-19 23:06 | Progress Note ---
DATE: 11/19/2019 Cardiology Progress Note SUBJECTIVE: The patient was discussed with nursing staff, no events were noted. The patient does not complain of chest pain, but does have dyspnea on exertion. OBJECTIVE: VITAL SIGNS: Temperature 98.8 degrees, pulse 65, respiratory rate 16, blood pressure 135/59, oxygen saturation 95%. The patient was not examined due to isolation for COVID-19. CARDIAC MEDICATIONS: Metoprolol tartrate 100 mg p.o. b.i.d., apixaban 2.5 mg p.o. b.i.d., digoxin 0.125 mg p.o. q.a.m., levothyroxine 75 mcg p.o. daily. LABORATORY DATA: WBC 17.07, hemoglobin 9.1, hematocrit 29.4, platelets 342. Sodium 139, potassium 4.3, chloride 115, CO2 of 23, BUN 60, creatinine 2.01. TELEMETRY: Personally reviewed and interpreted, revealing atrial fibrillation. IMPRESSION: 1. Paroxysmal atrial fibrillation. 2. Coronavirus disease-19 pneumonia. 3. Elevated BNP. 4. Acute on chronic kidney disease. 5. Nonsustained ventricular tachycardia. RECOMMENDATIONS: Continue metoprolol and digoxin for rate control. Monitor patient closely on telemetry. Maintain potassium above 4 and magnesium above 2. Given acute kidney injury, volume management per Nephrology. Continue supportive care. Thank you for this consult. We will continue to follow. Marya Peñaloza MD [facility]/MODL /[id number] SUSAN
[2019-11-20] VITALS (8 sets, daily range): BP systolic 113–183; BP diastolic 46–109
[2019-11-20 05:35] LABS: BASOPHILS % 0.2 % (0.0-1.0); EOSINOPHILS % 0.1 % (0.0-6.0); HEMATOCRIT 30.2 % (34.2-44.1); HEMOGLOBIN 9.4 g/dL (12.0-16.0); LYMPHOCYTES # (AUTO) 0.7 (1.0-3.2); LYMPHOCYTES % 3.2 % (18.0-39.1); MEAN CORPUSCULAR HEMOGLOBIN 28.1 pg (28-32); MEAN CORPUSCULAR HGB CONC 31.1 g/dL (31-35); MEAN CORPUSCULAR VOLUME 90.4 fL (81-99); MONOCYTES # (AUTO) 1.1 (0.2-0.8); MONOCYTES % 5.6 % (4.4-11.3); NEUTROPHILS # (AUTO) 18.2 (2.1-6.9); PLATELET COUNT 281 x10e3/uL (140-360); RED BLOOD COUNT 3.34 x10e6/uL (3.6-5.1); RED CELL DISTRIBUTION WIDTH 13.3 % (11.7-14.4)
[2019-11-20 05:49] LABS: ALBUMIN 2.5 g/dL (3.5-5.0); ALBUMIN/GLOBULIN RATIO 0.7 (0.8-2.0); ANION GAP 18.3 mmol/L (8-16); CALCIUM 7.8 mg/dL (8.4-10.2); CREATININE, SERUM 1.99 mg/dL (0.57-1.11); POTASSIUM 4.3 mmol/L (3.5-5.1)
--- NOTE | 2019-11-20 05:53 | NUR ---
patients blood pressure is 183/109. notified. received new order for procardia XL 30 po Q 12 hours. Will continue to monitor patients blood pressure.
[2019-11-20] MEDS: NIFEDIPINE CR 30 MG TAB PO SCH ×3 (06:37→20:52)
[2019-11-20] MEDS: LEVOTHYROXINE SODIUM 75 MCG TAB PO SCH (06:38)
[2019-11-20] MEDS: METRONIDAZOLE 500MG/NS 100ML 100 ML IV SCH ×3 (07:07→20:52)
--- NOTE | 2019-11-20 07:07 | Diagnostic Imaging Report ---
EXAMINATION: CHEST SINGLE (PORTABLE) INDICATION: ^viral pneumonia COMPARISON: 11/18/2019 FINDINGS: AP view TUBES and LINES: None. LUNGS: Interval slight increase in diffuse pulmonary airspace disease. PLEURA: No pleural effusion or pneumothorax. HEART AND MEDIASTINUM: The cardiomediastinal silhouette is unchanged. BONES AND SOFT TISSUES: No acute osseous lesion. Soft tissues are unremarkable. UPPER ABDOMEN: No free air under the diaphragm. IMPRESSION: Interval mild increase in diffuse pulmonary airspace disease consistent with known viral pneumonia. Signed by: Deon Wilson MD on 11/20/2019 7:04 AM
[2019-11-20] MEDS: METOPROLOL TARTRATE 50 MG TAB PO SCH ×2 (09:00→17:13)
[2019-11-20] MEDS ORDERED: NIFEDIPINE CR 30 MG TAB PO SCH (09:00)
[2019-11-20] MEDS: APIXAB 2.5 MG TABLET PO SCH (10:04)
[2019-11-20] MEDS: DIGOXIN 0.125 MG TAB PO SCH (10:04)
[2019-11-20] MEDS: SUCRALFATE 1 GM TAB PO SCH ×2 (10:04→17:13)
[2019-11-20] MEDS: FERROUS SULFATE 325 MG TAB PO SCH ×2 (10:04→17:13)
[2019-11-20] MEDS: ZINC SULFATE 50 MG CAP PO SCH (10:05)
[2019-11-20] MEDS: CHOLECALCIFEROL 400 UNIT TAB PO SCH (10:05)
[2019-11-20] MEDS: ASCORBIC ACID 500 MG TAB PO SCH ×2 (10:05→17:59)
--- NOTE | 2019-11-20 11:56 | NUR ---
IM-progress note O/N see below ROS: unreliable v/s; revd PE tired appearing anicteric ns1s2 REDUCED BS soft nt nd no e/t skin dry flat affect awake labs/meds revd A/P; Acute resp failure- abx; O2; steroids Multifocal PNA- IV abx Hyperkalemia- recheck KALLIE- IVF; recheck Physical deconditioning- PT Prop: heparin BID Dipso: monitor closely; f/u COVID testing; 11-12-19 Resp improving; CKD4 with KALLIE component; U/S does show medicorenal ds. Rapid HR- give AV blockade; check 12 lead EKG. 11-12 A.fib with RVR overnight- cardio consulted; echo ordered; eliquis for AC. - cont supportive care; HR controlled; CKD4. - cont care; dc planning -30 d/c planning; 7-1 SNF pending 7-2 IMproving; await SNF 7-3 needs free water 7-4 control BP; significant leukocytosis; supportive care; Abdifatah Mays MD, PhD.
[2019-11-20] MEDS: CEFEPIME 1GM/NS 0.9% 50 ML 50 ML IV SCH (12:40)
[2019-11-20] MEDS ORDERED: FUROSEMIDE INJ 10 MG/ML 4 ML VIAL IV ONE (13:45)
--- NOTE | 2019-11-20 13:54 | Progress Note ---
DATE: SUBJECTIVE: The patient had some rapid atrial fibrillation last night and required metoprolol. She continues on oxygen at 10 L. She does not complain of distress. She has some mild cough. PHYSICAL EXAMINATION: VITAL SIGNS: Blood pressure is 113/75, saturation is now 92%. She is on 10 L. HEENT: No facial swelling or erythema. CARDIAC: Irregularly irregular rhythm with normal S1, S2. LUNGS: Auscultation of lungs reveals crackles at the bases. There is no wheezing. ABDOMEN: Soft, nontender. There is no rebound or guarding. EXTREMITIES: No leg edema or calf tenderness. There is no cyanosis or clubbing. SKIN: No rashes. LABORATORY DATA: White blood cell count is 20.4, hemoglobin is 9.4, and platelet count is 281. The BUN to creatinine ratio is 66 to 1.99 and sodium is 148. Albumin is 2.5. RADIOGRAPHIC DATA: Chest x-ray shows increase in the pulmonary infiltrates. IMPRESSION: 1. Acute on chronic systolic and diastolic heart failure. 2. Atrial fibrillation with rapid ventricular response. 3. Viral pneumonia with coronavirus disease-19 infection. 4. Acute on chronic kidney disease. PLAN: 1. The patient will begin oral amiodarone through Cardiology today. 2. Gentle diuresis. 3. Continue to monitor renal function. 4. Broaden antibiotics to cover for healthcare-acquired organisms. 5. Continue anticoagulation. Hero Russell MD [facility]/MODL /[id number]
--- NOTE | 2019-11-20 18:24 | NUR ---
patient up in bed, alert with no distress, on O2 NC 10L, Collin light in reach, keep monitoring
--- NOTE | 2019-11-20 18:39 | Progress Note ---
DATE: 11/20/2019 Nephrology Followup Note SUBJECTIVE: The patient remains in isolation, speaks only [place] Leonean. History obtained from RN. Continues to require high dose of oxygen. No acute shortness of breath. The patient is alert. MEDICATIONS: Reviewed. Still receiving IV sodium bicarbonate containing fluid. LABORATORY DATA: Serum creatinine down to 1.99 from a high of 2.74 upon admission. BUN is 66, bicarb improved to 22. Sodium 148, potassium 3.3. White count elevated at 20.4 thousand, hemoglobin 9.4, normal platelet count. MEDICATIONS: Include: 1. IV cefepime. 2. Cholecalciferol. 3. Digoxin. 4. Apixaban. 5. Sucralfate. 6. Ferrous sulfate. 7. Metronidazole. 8. Levothyroxine. 9. IV sodium bicarbonate at 50 mL an hour. 10. Metoprolol p.r.n. 11. Metoprolol tartrate 100 mg p.o. b.i.d. 12. Nifedipine 60 mg, q.12 hours. OBJECTIVE: VITAL SIGNS: Blood pressure 162/48, pulse 55 per minute, oxygen saturation 91% on 10 L of nasal cannula oxygen. IMPRESSION: 1. Acute kidney injury, continue to improve. 2. Metabolic acidosis, controlled with IV sodium bicarbonate infusion. 3. Hypertension, high blood pressure despite 3 antihypertensives. 4. Mild hypernatremia. 5. Coronavirus disease-induced pneumonia. RECOMMENDATIONS: We will discontinue IV fluid. This should help with blood pressure control and possibly hyponatremia. Continue to monitor renal function while hospitalized. Kyler Cates MD [facility]/MODL /[id number]
[2019-11-21] VITALS (8 sets, daily range): BP systolic 112–148; BP diastolic 47–89
--- NOTE | 2019-11-21 02:00 | Progress Note ---
DATE: 11/20/2019 Cardiology Progress Note SUBJECTIVE: The patient was discussed with nursing staff. No events were reported. She continues to complain of shortness of breath and cough. Continues to require 10 L nasal cannula. OBJECTIVE: VITAL SIGNS: Temperature 97.8 degrees, pulse 91, respiratory rate 26, blood pressure 113/75, oxygen saturation 91% on 10 L nasal cannula. The patient was not examined due to isolation for COVID-19. CARDIAC MEDICATIONS: Nifedipine 60 mg p.o. q.12 hours, metoprolol tartrate 100 mg p.o. b.i.d., digoxin 0.125 mg p.o. q.a.m., levothyroxine 75 mcg p.o. daily. LABORATORY DATA: WBC 20.46, hemoglobin 9.4, hematocrit 30.2, platelets 281. Sodium 148, potassium 4.3, chloride 112, CO2 of 22, BUN 56, creatinine 1.99. TELEMETRY: Personally reviewed and interpreted, revealing atrial fibrillation. IMPRESSION: 1. Paroxysmal atrial fibrillation. 2. COVID-19 pneumonia. 3. Elevated BNP. 4. Acute on chronic kidney disease. 5. Nonsustained ventricular tachycardia. RECOMMENDATIONS: Continue metoprolol and digoxin for rate control. Heart rate is acceptable. Monitor the patient closely on telemetry. Keep potassium above 4 and magnesium above 2. Assess blood pressure response to increasing Nifedipine, volume management per Nephrology given acute kidney injury. The patient may benefit from gentle diuretics. Continue supportive care. Thank you for this consult. We will continue to follow. Marya Peñaloza MD [facility]/MODL /[id number]
[2019-11-21 05:36] LABS: BASOPHILS % 0.2 % (0.0-1.0); HEMATOCRIT 28.1 % (34.2-44.1); HEMOGLOBIN 8.5 g/dL (12.0-16.0); LYMPHOCYTES # (AUTO) 0.8 (1.0-3.2); LYMPHOCYTES % 4.6 % (18.0-39.1); MEAN CORPUSCULAR HEMOGLOBIN 27.3 pg (28-32); MEAN CORPUSCULAR HGB CONC 30.2 g/dL (31-35); MEAN CORPUSCULAR VOLUME 90.4 fL (81-99); MONOCYTES # (AUTO) 1.1 (0.2-0.8); MONOCYTES % 6.5 % (4.4-11.3); NEUTROPHILS # (AUTO) 15.1 (2.1-6.9); NEUTROPHILS % 86.6 % (38.7-80.0); PLATELET COUNT 327 x10e3/uL (140-360); RED BLOOD COUNT 3.11 x10e6/uL (3.6-5.1); RED CELL DISTRIBUTION WIDTH 13.3 % (11.7-14.4)
[2019-11-21 06:13] LABS: ALBUMIN 2.4 g/dL (3.5-5.0); ALBUMIN/GLOBULIN RATIO 0.6 (0.8-2.0); ANION GAP 18.9 mmol/L (8-16); CALCIUM 7.9 mg/dL (8.4-10.2); CREATININE, SERUM 2.44 mg/dL (0.57-1.11); POTASSIUM 3.9 mmol/L (3.5-5.1)
[2019-11-21] MEDS: METRONIDAZOLE 500MG/NS 100ML 100 ML IV SCH ×3 (06:44→21:49)
[2019-11-21] MEDS: LEVOTHYROXINE SODIUM 75 MCG TAB PO SCH (06:44)
--- NOTE | 2019-11-21 06:47 | NUR ---
patient is resting in the bed. bed is in the lowest position and call light is within reach.
[2019-11-21] MEDS ORDERED: GUAIFENESIN 200 MG/10 ML UDC PO PRN (08:45)
[2019-11-21] MEDS: DIGOXIN 0.125 MG TAB PO SCH (09:53)
[2019-11-21] MEDS: FERROUS SULFATE 325 MG TAB PO SCH ×2 (09:53→17:36)
[2019-11-21] MEDS: SUCRALFATE 1 GM TAB PO SCH ×2 (09:53→17:35)
[2019-11-21] MEDS: ZINC SULFATE 50 MG CAP PO SCH (09:54)
[2019-11-21] MEDS: CHOLECALCIFEROL 400 UNIT TAB PO SCH (09:54)
[2019-11-21] MEDS: NIFEDIPINE CR 30 MG TAB PO SCH ×2 (09:54→21:50)
[2019-11-21] MEDS: BENZONATATE 100 MG CAP PO SCH ×3 (09:54→21:49)
[2019-11-21] MEDS: METOPROLOL TARTRATE 50 MG TAB PO SCH ×2 (09:54→17:36)
[2019-11-21] MEDS: ASCORBIC ACID 500 MG TAB PO SCH ×2 (09:54→17:36)
[2019-11-21] MEDS: CEFEPIME 1GM/NS 0.9% 50 ML 50 ML IV SCH (12:36)
--- NOTE | 2019-11-21 14:53 | NUR ---
IM-progress note O/N see below ROS: unreliable v/s; revd PE tired appearing anicteric ns1s2 REDUCED BS soft nt nd no e/t skin dry flat affect awake labs/meds revd A/P; Acute resp failure- abx; O2; steroids Multifocal PNA- IV abx Hyperkalemia- recheck KALLIE- IVF; recheck Physical deconditioning- PT Prop: heparin BID Dipso: monitor closely; f/u COVID testing; 11-12-19 Resp improving; CKD4 with KALLIE component; U/S does show medicorenal ds. Rapid HR- give AV blockade; check 12 lead EKG. 11-12 A.fib with RVR overnight- cardio consulted; echo ordered; eliquis for AC. - cont supportive care; HR controlled; CKD4. - cont care; dc planning 6-30 d/c planning; 7-1 SNF pending 7-2 IMproving; await SNF 7-3 needs free water 7-4 control BP; significant leukocytosis; supportive care; 7-5 cont care; monitor renal fn; Hypernatremia- give free water; check Na every 8 hours Abdifatah Mays MD, PhD.
[2019-11-21] MEDS: DEXTROSE 5% 1,000 ML IV SCH (17:35)
[2019-11-21] MEDS: APIXABAN 5 MG TABLET PO SCH (17:36)
--- NOTE | 2019-11-21 17:57 | Progress Note ---
DATE: 11/21/2019 Cardiology Progress Note SUBJECTIVE: The patient was discussed with nursing staff, no events were reported. She continues to require 10 L nasal cannula. OBJECTIVE: VITAL SIGNS: Temperature 97.3 degrees, pulse 80, respiratory rate 24, blood pressure 141/53, and oxygen saturation 93% on 10 L nasal cannula. The patient was not examined due to COVID-19 isolation. CARDIAC MEDICATIONS: Nifedipine 60 mg p.o. q.12 hours, metoprolol tartrate 100 mg p.o. b.i.d., digoxin 0.125 mg p.o. q.a.m., levothyroxine 75 mcg p.o. daily, apixaban 2.5 mg p.o. b.i.d. LABORATORY DATA: WBC for 17.47, hemoglobin 8.5, hematocrit 28.1, and platelets 327. Sodium 151, potassium 3.9, chloride 112, CO2 of 24. BUN 78, and creatinine 2.44. Telemetry was personally reviewed and interpreted revealing atrial fibrillation. IMPRESSION: 1. Paroxysmal atrial fibrillation. 2. COVID-19 pneumonia. 3. Elevated BNP. 4. Wzlvi-hd-kjakufz kidney disease. 5. Nonsustained ventricular tachycardia. RECOMMENDATIONS: Continue metoprolol and digoxin for rate control. Heart rate is acceptable. Check digoxin level. Monitor the patient closely on telemetry. Keep potassium above 4 and magnesium above 2. The patient's blood pressure is labile, but for the most part is acceptable for her age. Continue current medications. Given her acute kidney injury, volume management per Nephrology. She may benefit from gentle IV diuretics. We will repeat BMP as well. Continue supportive care. Thank you for this consult. We will continue to follow. Marya Peñaloza MD [facility]/MODL /[id number]
--- NOTE | 2019-11-21 20:07 | Progress Note ---
DATE: SUBJECTIVE: The patient has some increased dyspnea. She still has some cough. She has decreased appetite. PHYSICAL EXAMINATION: VITAL SIGNS: The blood pressure is 141/53, saturation is now 93% on 10 L nasal cannula. CARDIAC: Reveals regular rate and rhythm with normal S1, S2. LUNGS: Auscultation of lungs reveals crackles at the bases. There is no wheezing. ABDOMEN: Soft and nontender. There is no rebound or guarding. EXTREMITIES: Shows no leg edema or calf tenderness. There is no cyanosis or clubbing. LABORATORY DATA: BUN to creatinine ratio is 78 to 2.44 and sodium is 151. The BNP is 796 and the albumin is 2.4. IMPRESSION: 1. Acute on chronic systolic and diastolic heart failure. 2. Atrial fibrillation. 3. Acute on chronic kidney disease. 4. Hyponatremia. 5. Viral pneumonia and COVID-19. PLAN: 1. The patient has been given the free water by Nephrology. 2. Continue gentle diuresis along with amiodarone and Eliquis. 3. Continue to monitor renal function. 4. Oxygen. 5. Physical therapy. Hero Russell MD [facility]/MODL /[id number]
[2019-11-22] VITALS (7 sets, daily range): BP systolic 98–128; BP diastolic 35–61
[2019-11-22 05:35] LABS: BASOPHILS % 0.1 % (0.0-1.0); EOSINOPHILS # (AUTO) 0.1 (0.0-0.4); EOSINOPHILS % 0.3 % (0.0-6.0); HEMATOCRIT 27.2 % (34.2-44.1); HEMOGLOBIN 8.4 g/dL (12.0-16.0); LYMPHOCYTES # (AUTO) 1.3 (1.0-3.2); LYMPHOCYTES % 5.9 % (18.0-39.1); MEAN CORPUSCULAR HEMOGLOBIN 28.6 pg (28-32); MEAN CORPUSCULAR HGB CONC 30.9 g/dL (31-35); MEAN CORPUSCULAR VOLUME 92.5 fL (81-99); MONOCYTES # (AUTO) 1.3 (0.2-0.8); MONOCYTES % 5.9 % (4.4-11.3); NEUTROPHILS # (AUTO) 18.7 (2.1-6.9); NEUTROPHILS % 85.5 % (38.7-80.0); PLATELET COUNT 280 x10e3/uL (140-360); RED BLOOD COUNT 2.94 x10e6/uL (3.6-5.1); RED CELL DISTRIBUTION WIDTH 13.2 % (11.7-14.4)
[2019-11-22 05:56] LABS: ALBUMIN 2.5 g/dL (3.5-5.0); ALBUMIN/GLOBULIN RATIO 0.7 (0.8-2.0); ANION GAP 15.8 mmol/L (8-16); CALCIUM 7.8 mg/dL (8.4-10.2); CREATININE, SERUM 3.14 mg/dL (0.57-1.11); POTASSIUM 3.8 mmol/L (3.5-5.1)
[2019-11-22] MEDS: LEVOTHYROXINE SODIUM 75 MCG TAB PO SCH (06:16)
[2019-11-22] MEDS: METRONIDAZOLE 500MG/NS 100ML 100 ML IV SCH ×2 (06:16→14:26)
--- NOTE | 2019-11-22 06:56 | NUR ---
patient is resting in the bed. bed is in the lowest position and call light is within reach.
--- NOTE | 2019-11-22 07:11 | NUR ---
patient is resting in the bed. bed is in the lowest position and call light is within reach.
--- NOTE | 2019-11-22 07:50 | NUR ---
PATIENT IN BED RESTING WITH EYES CLOSED, NO DISTRESS NOTED. HIGH FLOW O2 IN PLACE. BED IN LOWER POSITION, CALL LIGHT AT REACH.
--- NOTE | 2019-11-22 08:33 | Diagnostic Imaging Report ---
EXAMINATION: CHEST SINGLE (PORTABLE) INDICATION: Viral pneumonia COMPARISON: Multiple prior chest radiograph, most recently of 11/20/2019 FINDINGS: LINES/TUBES:EKG leads overlie the chest. LUNGS:The lungs are moderately inflated. Unchanged bilateral left greater than right interstitial and airspace opacities. PLEURA:No pleural effusion or pneumothorax. MEDIASTINUM:The cardiomediastinal silhouette appears unchanged in size and shape. BONES/SOFT TISSUES:No acute osseous injury. ABDOMEN:No free air under the diaphragm. IMPRESSION: No significant interval change. Signed by: Jaelyn Boyd MD on 11/22/2019 8:30 AM
[2019-11-22] MEDS: NIFEDIPINE CR 30 MG TAB PO SCH ×2 (09:00→21:00)
[2019-11-22] MEDS: METOPROLOL TARTRATE 50 MG TAB PO SCH ×2 (09:00→17:30)
[2019-11-22] MEDS: FUROSEMIDE INJ 10 MG/ML 4 ML VIAL IV SCH ×2 (09:04→21:00)
[2019-11-22] MEDS: SUCRALFATE 1 GM TAB PO SCH ×2 (09:05→17:10)
[2019-11-22] MEDS: ASCORBIC ACID 500 MG TAB PO SCH ×2 (09:05→17:11)
[2019-11-22] MEDS: FERROUS SULFATE 325 MG TAB PO SCH ×2 (09:05→17:10)
[2019-11-22] MEDS: BENZONATATE 100 MG CAP PO SCH ×3 (09:05→21:00)
[2019-11-22] MEDS: ZINC SULFATE 50 MG CAP PO SCH (09:05)
[2019-11-22] MEDS: CHOLECALCIFEROL 400 UNIT TAB PO SCH (09:05)
[2019-11-22] MEDS: DIGOXIN 0.125 MG TAB PO SCH (09:05)
[2019-11-22] MEDS: APIXABAN 5 MG TABLET PO SCH ×2 (09:05→17:10)
--- NOTE | 2019-11-22 10:51 | Progress Note ---
DATE: SUBJECTIVE: The patient received some free water yesterday for her high sodium as well as diuretics. She appears a little more comfortable today. Her oxygen is down to 8 L and she is saturating in the low 90s. PHYSICAL EXAMINATION: VITAL SIGNS: The blood pressure is 98/45 and the pulse is 77. She has a nasal cannula in place. CARDIAC: Irregularly irregular rhythm with normal S1, S2. LUNGS: Auscultation of lungs reveals crackles at the bases. There is no wheezing. ABDOMEN: Soft and nontender. There is no rebound or guarding. EXTREMITIES: No leg edema or calf tenderness. There is no cyanosis or clubbing. SKIN: No rashes. NEUROLOGICAL: No focal abnormalities. RADIOGRAPHIC DATA: The patient still has bilateral infiltrates. LABORATORY DATA: BUN to creatinine ratio is 91 to 3.14. Other electrolytes are within normal limits. The albumin is 2.5. White blood cell count is 21.8, hemoglobin is 8.4. The platelet count is 280. IMPRESSION: 1. Acute on chronic kidney failure. 2. Acute on chronic systolic and diastolic heart failure. 3. Atrial fibrillation. 4. Hypernatremia. 5. Viral pneumonia and coronavirus disease-19 infection. PLAN: 1. Continue diuretics and free water as recommended by Nephrology. 2. Continue to monitor creatinine and electrolytes. 3. Check digoxin level. 4. Continue Eliquis and amiodarone. 5. Decrease oxygen. 6. Physical therapy. MD YUNIOR Malhotra/AVILA /[id number]
[2019-11-22] MEDS: CEFEPIME 1GM/NS 0.9% 50 ML 50 ML IV SCH (12:17)
--- NOTE | 2019-11-22 13:51 | Progress Note ---
DATE: Cardiology progress note SUBJECTIVE: No events. Still on high-flow oxygen. OBJECTIVE: VITAL SIGNS: Temperature 97.4, heart rate is 86, respirations are 19, blood pressure is 102/37, and oxygen saturation is 96% on high-flow nasal cannula. The patient was not examined due to COVID-19 isolation. CARDIOVASCULAR MEDICATIONS: Reviewed. LABORATORY DATA: Reviewed. Creatinine is 3.14. Potassium is 3.8. TELEMETRY: Telemetry monitoring was personally reviewed and shows atrial fibrillation with premature ventricular complexes. IMPRESSION: 1. Paroxysmal atrial fibrillation. 2. Coronavirus disease-19 pneumonia. 3. Elevated BNP. 4. Acute on chronic kidney disease. 5. Nonsustained ventricular tachycardia. RECOMMENDATIONS: Continue metoprolol and digoxin for rate control. Blood pressure and heart rate are within acceptable levels. Her digoxin level was checked and was within normal limits. Maintain the patient on telemetry. Volume management per Nephrology. We will continue to follow along. Alvaro Jordan DO [facility]/MODL /[id number]
--- NOTE | 2019-11-22 15:45 | NUR ---
TRANSFILL TECHNICIAN IN TO SEE PATIENT, NEW ORDER RECEIVED.
--- NOTE | 2019-11-22 16:20 | NUR ---
IM-progress note O/N see below ROS: unreliable v/s; revd PE tired appearing anicteric ns1s2 REDUCED BS soft nt nd no e/t skin dry flat affect awake labs/meds revd A/P; Acute resp failure- abx; O2; steroids Multifocal PNA- IV abx Hyperkalemia- recheck KALLIE- IVF; recheck Physical deconditioning- PT Prop: heparin BID Dipso: monitor closely; f/u COVID testing; 11-12-19 Resp improving; CKD4 with KALLIE component; U/S does show medicorenal ds. Rapid HR- give AV blockade; check 12 lead EKG. 11-12 A.fib with RVR overnight- cardio consulted; echo ordered; eliquis for AC. - cont supportive care; HR controlled; CKD4. - cont care; dc planning 6-30 d/c planning; 7-1 SNF pending 7-2 IMproving; await SNF 7-3 needs free water 7-4 control BP; significant leukocytosis; supportive care; 7-5 cont care; monitor renal fn; Hypernatremia- give free water; check Na every 8 hours 7-6 give free water; Abdifatah Mays MD, PhD.
[2019-11-22] MEDS: DEXTROSE 5% 1,000 ML IV SCH (17:10)
--- NOTE | 2019-11-22 17:27 | Progress Note ---
DATE: 11/22/2019 Nephrology Followup Note SUBJECTIVE: The patient remains in isolation due to COVID-19. Speaks only Senegalese. According to nurse, the patient is alert and talking to her family members by phone. No acute respiratory distress, but is oxygen dependent for saturation. OBJECTIVE: VITAL SIGNS: Blood pressure 102/37, pulse 86 per minute, afebrile. Oxygen saturation 92% on supplemental O2. GENERAL: Alert and oriented. No acute distress. EXTREMITIES: No peripheral edema. LABORATORY DATA: BUN and creatinine have risen since yesterday to 91 and 3.12. Electrolytes stable. White count elevated to 21.8, hemoglobin 8.4, and platelet count normal. IMPRESSION AND PLAN: 1. Acute kidney injury, creatinine trending up. 2. Metabolic acidosis, controlled. 3. Hypertension, blood pressure remains on the low side. 4. Possible fluid overload, we will add Lasix 40 mg b.i.d. 5. Coronavirus disease-19 pneumonia. Continue to monitor renal function daily. Ordered renal ultrasound and urinalysis. Kyler Cates MD [facility]/MODL /[id number]
--- NOTE | 2019-11-22 17:57 | Progress Note ---
DATE: SUBJECTIVE: Ms. Bullard remains comfortable, but on high oxygen. No new problems. OBJECTIVE: VITAL SIGNS: Stable, afebrile. HEENT: She is not icteric. NECK: Supple, CHEST: Few crackles at the bases. HEART: S1-S2. No murmurs. ABDOMEN: Soft. Bowel sounds present. No tenderness. EXTREMITIES: No edema. SKIN: No rash. LABORATORY DATA: The patient is currently on nasal cannula of 10. Her white count is 21 today, hemoglobin 8.4. Her sodium 145, potassium 3.8, and creatinine 3.14. IMPRESSION: Seemed a bit worse today. Her kidney function is worse. Her white count is worse. Concern about fluid overload. I am going to discontinue the Flagyl and cefepime for now since apparently she is getting worse on these two antibiotics. She is on Eliquis, vitamin C, and Lasix. Continue as ordered. I would recommend to concern. Discussed with the family about DNR. The patient, who has been here for 11 days. We will reassess. MD DANETTE Heller/AVILA /[id number]
--- NOTE | 2019-11-22 19:25 | NUR ---
BED SIDE SHIFT REPORT GIVEN TO ON COMING NURSE.
--- NOTE | 2019-11-22 20:09 | Diagnostic Imaging Report ---
EXAM: Renal Ultrasound INDICATION: ^KALLIE COMPARISON: Renal ultrasound dated 11/12/2019 TECHNIQUE: Transverse and longitudinal images of the kidneys and bladder were obtained. FINDINGS: Right Kidney: Size: 8.1 cm Echogenicity: Increased Parenchymal thickness: Normal Collecting system: No hydronephrosis Stones: None Cyst/Mass: None Left Kidney: Size: 8.6 cm Echogenicity: Increased Parenchymal thickness: Normal Collecting system: No hydronephrosis Stones: None Cyst/Mass: None Bladder: Unremarkable. IMPRESSION: Again seen echogenic kidneys, consistent with medical renal disease. Signed by: Dr. John Franco MD on 11/22/2019 8:06 PM
--- NOTE | 2019-11-22 22:00 | NUR ---
called Dr Mays about pt b/p 117/37 hr 67-61. Insructed to hold Lasix,procardia xl, and Tessalon pearls- pt having difficulty swallowing.pt desat to 70 and 80 at times but comes back up. Will continue to monitor pulse ox and vs.
--- NOTE | 2019-11-22 23:01 | NUR ---
Notified pt desat and vs low diastolic. New orders received to repeat stat labs- cbc,cmp,cm, and abg.Results called to Dr Mays. Pt transferred to to ICU Covid Addendum: 11/23/19 at 1043 by RADHA MAURICE RN Attempted to notify family x3- phone busy.
[2019-11-22 23:57] LABS: HEMATOCRIT 25.4 % (34.2-44.1); HEMOGLOBIN 7.9 g/dL (12.0-16.0); MEAN CORPUSCULAR HEMOGLOBIN 27.9 pg (28-32); MEAN CORPUSCULAR HGB CONC 31.1 g/dL (31-35); MEAN CORPUSCULAR VOLUME 89.8 fL (81-99); PLATELET COUNT 259 x10e3/uL (140-360); RED BLOOD COUNT 2.83 x10e6/uL (3.6-5.1); RED CELL DISTRIBUTION WIDTH 13.5 % (11.7-14.4)
[2019-11-23] VITALS (25 sets, daily range): BP systolic 94–134; BP diastolic 34–105
[2019-11-23 00:02] LABS: ABG PCO2 31 mmHg (35-45); ABG PH 7.47 (7.35-7.45); ABG PO2 68 mmHg (80-105)
[2019-11-23 00:03] LABS: ABG HCO3 23 mmol/L (22-26)
[2019-11-23 00:08] LABS: ALBUMIN 2.2 g/dL (3.5-5.0); ANION GAP 15.9 mmol/L (8-16); CALCIUM 7.7 mg/dL (8.4-10.2); CREATININE, SERUM 3.69 mg/dL (0.57-1.11); POTASSIUM 3.9 mmol/L (3.5-5.1)
[2019-11-23 00:09] LABS: ALBUMIN/GLOBULIN RATIO 0.6 (0.8-2.0)
[2019-11-23 00:17] LABS: CREATINE KINASE MB 6.1 ng/mL (0-5.0)
--- NOTE | 2019-11-23 02:11 | NUR ---
Received pt from [facility] med-surg unit, pt on 100% NRB and 15L high flow nasal cannula. Pt saturation in the low 90s. ABG was drawn before transfer and floor nurse received transfer orders from Dr. Mays. 02:00: Called Dr. Anne Russell to notify of pt's ABG and update on situation. Ordered to start pt on vapotherm.
[2019-11-23 05:55] LABS: BASOPHILS % 0.2 % (0.0-1.0); EOSINOPHILS # (AUTO) 0.1 (0.0-0.4); EOSINOPHILS % 0.3 % (0.0-6.0); HEMATOCRIT 26.6 % (34.2-44.1); HEMOGLOBIN 8.4 g/dL (12.0-16.0); LYMPHOCYTES # (AUTO) 0.7 (1.0-3.2); LYMPHOCYTES % 3.6 % (18.0-39.1); MEAN CORPUSCULAR HEMOGLOBIN 28.8 pg (28-32); MEAN CORPUSCULAR HGB CONC 31.6 g/dL (31-35); MEAN CORPUSCULAR VOLUME 91.1 fL (81-99); MONOCYTES # (AUTO) 0.9 (0.2-0.8); MONOCYTES % 4.7 % (4.4-11.3); NEUTROPHILS % 89.3 % (38.7-80.0); PLATELET COUNT 244 x10e3/uL (140-360); RED BLOOD COUNT 2.92 x10e6/uL (3.6-5.1); RED CELL DISTRIBUTION WIDTH 13.2 % (11.7-14.4)
[2019-11-23 06:16] LABS: ALBUMIN 2.2 g/dL (3.5-5.0); ALBUMIN/GLOBULIN RATIO 0.6 (0.8-2.0); ANION GAP 16.8 mmol/L (8-16); CALCIUM 7.7 mg/dL (8.4-10.2); CREATININE, SERUM 3.95 mg/dL (0.57-1.11); POTASSIUM 3.8 mmol/L (3.5-5.1)
[2019-11-23] MEDS: DEXTROSE 5% 1,000 ML IV SCH (06:26)
[2019-11-23] MEDS: LEVOTHYROXINE SODIUM 75 MCG TAB PO SCH (06:26)
[2019-11-23] MEDS: FUROSEMIDE INJ 10 MG/ML 4 ML VIAL IV SCH ×2 (08:34→20:59)
[2019-11-23] MEDS: SUCRALFATE 1 GM TAB PO SCH ×3 (08:34→16:27)
[2019-11-23] MEDS: FERROUS SULFATE 325 MG TAB PO SCH ×3 (08:37→16:27)
[2019-11-23] MEDS: ASCORBIC ACID 500 MG TAB PO SCH ×3 (08:37→16:27)
[2019-11-23] MEDS: ZINC SULFATE 50 MG CAP PO SCH ×2 (08:38→09:00)
[2019-11-23] MEDS: BENZONATATE 100 MG CAP PO SCH ×4 (08:39→21:00)
[2019-11-23] MEDS: CHOLECALCIFEROL 400 UNIT TAB PO SCH ×3 (08:39→16:28)
[2019-11-23] MEDS: DIGOXIN 0.125 MG TAB PO SCH (09:00)
[2019-11-23] MEDS: NIFEDIPINE CR 30 MG TAB PO SCH ×2 (09:00→21:00)
[2019-11-23] MEDS: APIXABAN 5 MG TABLET PO SCH ×2 (09:00→16:27)
[2019-11-23] MEDS: METOPROLOL TARTRATE 50 MG TAB PO SCH ×2 (09:00→16:27)
[2019-11-23] MEDS ORDERED: METHYLPREDNISOLONE SOD SUCC 125 MG/2ML VIAL IV ONE (10:30)
--- NOTE | 2019-11-23 10:56 | Progress Note ---
DATE: SUBJECTIVE: The patient had more desaturations last night. She was transferred to the [facility] intensive care unit and started on Vapotherm. This morning, she has coughing and choking when she eats. The nurses re-concerned about aspiration. She also has an elevated creatinine. PHYSICAL EXAMINATION: VITAL SIGNS: The blood pressure is 118/105 and the pulse is 76. Saturation is 94% on a Vapotherm at 40 L with 100%. HEENT: No facial swelling or erythema. CARDIAC: Regular rate and rhythm with normal S1, S2. LUNGS: Auscultation of lungs reveals crackles at the bases. There is no wheezing. ABDOMEN: Soft, nontender. There is no rebound or guarding. EXTREMITIES: No leg edema or calf tenderness. There is no cyanosis or clubbing. SKIN: No rashes. NEUROLOGICAL: No focal abnormalities. LABORATORY DATA: White blood cell count is 20.2 and hemoglobin is 8.4. The platelet count is 244,000. The BUN to creatinine ratio is 104 to 3.95. The other electrolytes are within normal limits. The albumin is 2.2. IMPRESSION: 1. Acute respiratory failure. 2. Viral pneumonia and coronavirus disease-19 infection. 3. Acute on chronic renal failure. 4. Recurrent aspiration pneumonitis. 5. Atrial fibrillation. 6. Acute on chronic diastolic heart failure. PLAN: 1. Case discussed with daughter. Daughter will speak to other family members and decide whether or not the family desires aggressive measures. 2. Probable NG tube for medications and feedings. 3. Continue current cardiac regimen. 4. Continue Vapotherm. 5. Continue to monitor BUN and creatinine. Hero Russell MD [facility]/MODL /[id number]
--- NOTE | 2019-11-23 13:40 | NUR ---
IM-progress note O/N see below ROS: unreliable v/s; revd PE tired appearing anicteric ns1s2 REDUCED BS soft nt nd no e/t skin dry flat affect awake labs/meds revd A/P; Acute resp failure- abx; O2; steroids Multifocal PNA- IV abx Hyperkalemia- recheck KALLIE- IVF; recheck Physical deconditioning- PT Prop: heparin BID Dipso: monitor closely; f/u COVID testing; 11-11- Resp improving; CKD4 with KALLIE component; U/S does show medicorenal ds. Rapid HR- give AV blockade; check 12 lead EKG. 11-12 A.fib with RVR overnight- cardio consulted; echo ordered; eliquis for AC. - cont supportive care; HR controlled; CKD4. - cont care; dc planning 6-30 d/c planning; 7-1 SNF pending 7-2 IMproving; await SNF 7-3 needs free water 7-4 control BP; significant leukocytosis; supportive care; 7-5 cont care; monitor renal fn; Hypernatremia- give free water; check Na every 8 hours 7-6 give free water; 7-7 cont care in ICU. O2 support; remains full code; intubated if needed. Abdifatah Mays MD, PhD.
--- NOTE | 2019-11-23 15:12 | Progress Note ---
DATE: 11/23/2019 Nephrology Progress Note SUBJECTIVE: [facility] because of deteriorating respiratory status. She seems to have maxed out on preintubation supplemental oxygen. OBJECTIVE: VITAL SIGNS: Blood pressure 118 systolic, pulse 76 per minute, oximetry 94% on high-flow oxygen. Exam limited to discussion with RN due to the patient being in isolation. She is in respiratory distress. Mejia catheter shows oliguric urine. LABORATORY DATA: BUN, creatinine continued to rise, now at 104 and 3.95 respectively. Electrolytes stable. Total calcium 7.7. A renal ultrasound done yesterday was negative for obstruction. Urinalysis pending. IMPRESSION AND PLAN: 1. Acute kidney injury, secondary to COVID pneumonia/sepsis. Continuing to deteriorate. Obstruction ruled out by ultrasound. 2. Metabolic acidosis, controlled. 3. Hypertension, current blood pressure stable on the low side. 4. Possible fluid overload, on Lasix 40 mg IV b.i.d. without much success. 5. COVID-19 pneumonia, sepsis, leukocytosis. Apparently, not responding to current management. Per Dr. Russell's note and in discussion with the RN, family is considering further direction of care and should decide soon. Case discussed in detail with the RN. Kyler Cates MD [facility]/MODL /[id number]
--- NOTE | 2019-11-23 19:14 | NUR ---
Pt desaturating to low 80's and coughing while eating breakfast. Swallow study ordered per Dr. Anne Russell. Pt made NPO due to aspirating per speech evaluation. Dr Mays gave orders to check sodium daily with BNP in the AM, d/c q8 sodium checks. Dr. Anne russell discussed patient's prognosis with family as patient asked, family wishing to have all procedures done necessary at this time. Pt refused NGT insertion. Addendum: 11/23/19 at 1922 by Sabra Crane RN Dr. Anne Russell aware pt refused NGT.
--- NOTE | 2019-11-23 21:30 | NUR ---
Dr. Russell called and updated on patient. ordered to hold Eliquis, consent was obtained for trialysis catheter from dtr Elida. Dr. Russell aware of BS 346 and on D5 IVF, ordered to stop D5.
[2019-11-24] VITALS (20 sets, daily range): BP systolic 103–135; BP diastolic 37–70
[2019-11-24] MEDS: LEVOTHYROXINE SODIUM 75 MCG TAB PO SCH (06:00)
[2019-11-24 06:43] LABS: CALCIUM 7.6 mg/dL (8.4-10.2); CREATININE, SERUM 4.35 mg/dL (0.57-1.11)
--- NOTE | 2019-11-24 07:14 | NUR ---
infectious disease progress note 11/24/2019 Patient remains in intensive care unit he patient had more desaturations last night. She was transferred to the [facility] intensive care unit and started on Vapotherm. there is concern about aspiration was witnessed by nursing team patient is weak and confused She also has an elevated creatinine. PHYSICAL EXAMINATION: VITAL SIGNS: The blood pressure is 118/105 and the pulse is 76. Saturation is 94% on a Vapotherm at 40 L with 100%. HEENT: No facial swelling or erythema. CARDIAC: Regular rate and rhythm with normal S1, S2. LUNGS: Auscultation of lungs reveals crackles at the bases. There is no wheezing. ABDOMEN: Soft, nontender. There is no rebound or guarding. EXTREMITIES: No leg edema or calf tenderness. There is no cyanosis or clubbing. SKIN: No rashes. NEUROLOGICAL: No focal abnormalities. LABORATORY DATA: White blood cell count is 20.2 and hemoglobin is 8.4. The platelet count is 244,000. The BUN to creatinine ratio is 104 to 3.95. The other electrolytes are within normal limits. The albumin is 2.2. IMPRESSION: 1. Acute respiratory failure. 2. Viral pneumonia and coronavirus disease-19 infection. 3. Acute on chronic renal failure. 4. Recurrent aspiration pneumonitis. 5. Atrial fibrillation. 6. Acute on chronic diastolic heart failure. aspiration [id number]
[2019-11-24] MEDS: BENZONATATE 100 MG CAP PO SCH ×3 (09:00→20:24)
[2019-11-24] MEDS: ZINC SULFATE 50 MG CAP PO SCH (09:00)
[2019-11-24] MEDS: NIFEDIPINE CR 30 MG TAB PO SCH ×2 (09:00→20:24)
[2019-11-24] MEDS: METOPROLOL TARTRATE 50 MG TAB PO SCH ×2 (09:00→17:00)
[2019-11-24] MEDS: FERROUS SULFATE 325 MG TAB PO SCH ×2 (09:00→15:36)
[2019-11-24] MEDS: ASCORBIC ACID 500 MG TAB PO SCH ×2 (09:00→17:00)
[2019-11-24] MEDS: SUCRALFATE 1 GM TAB PO SCH ×2 (09:00→15:36)
[2019-11-24] MEDS: CHOLECALCIFEROL 400 UNIT TAB PO SCH ×2 (09:00→17:00)
[2019-11-24] MEDS: DIGOXIN 0.125 MG TAB PO SCH (09:17)
[2019-11-24] MEDS: FUROSEMIDE INJ 10 MG/ML 4 ML VIAL IV SCH (09:17)
--- NOTE | 2019-11-24 10:40 | NUR ---
IM-progress note O/N see below ROS: unreliable v/s; revd PE tired appearing anicteric ns1s2 REDUCED BS soft nt nd no e/t skin dry flat affect awake labs/meds revd A/P; Acute resp failure- abx; O2; steroids Multifocal PNA- IV abx Hyperkalemia- recheck KALLIE- IVF; recheck Physical deconditioning- PT Prop: heparin BID Dipso: monitor closely; f/u COVID testing; 11-12-19 Resp improving; CKD4 with KALLIE component; U/S does show medicorenal ds. Rapid HR- give AV blockade; check 12 lead EKG. 11-12 A.fib with RVR overnight- cardio consulted; echo ordered; eliquis for AC. 11-13 cont supportive care; HR controlled; CKD4. 11-14 cont care; dc planning -30 d/c planning; 7-1 SNF pending 7-2 IMproving; await SNF 7-3 needs free water 7-4 control BP; significant leukocytosis; supportive care; 7-5 cont care; monitor renal fn; Hypernatremia- give free water; check Na every 8 hours 7-6 give free water; 7-7 cont care in ICU. O2 support; remains full code; intubated if needed. 7-8 no change; cont NRBM/HiFlo; cont supportive care; remains full code; Abdifatah Mays MD, PhD.
--- NOTE | 2019-11-24 11:03 | NUR ---
GOT I2 TANK AND NOTIFIED RUTH PT NOT GOING TO USE
--- NOTE | 2019-11-24 13:06 | Progress Note ---
DATE: Cardiology Progress Note SUBJECTIVE: The patient's status was discussed with nursing staff. The patient is having swallowing difficulties. Nursing staff does not report any changes in heart rate, rhythm, or blood pressure. The patient is not complaining of any chest pain or palpitations. OBJECTIVE: VITAL SIGNS: Temperature is 97.7, heart rate is 81, respirations are 19, blood pressure is 135/46, and oxygen saturation is 94% on high-flow 70% FiO2. Physical examination per Pulmonary Critical Care. The patient was not examined due to being in isolation due to COVID-19. LABORATORY DATA: Reviewed. White blood cell count is 20.1. Creatinine is 4.3 and potassium is 4. IMPRESSION: 1. Paroxysmal atrial fibrillation. 2. COVID-19. 3. Pneumonia. 4. Respiratory failure with hypoxia. 5. Hthmt-ua-zdvfxwk kidney disease. 6. Nonsustained ventricular tachycardia. RECOMMENDATIONS: Continue metoprolol and digoxin for rate control. Check a digoxin level as her creatinine continues to rise. The patient's vital signs are within acceptable limits. Volume management per Nephrology. COVID-19 treatment per Pulmonary Critical Care. DO SARA Sue/MODL /[id number]
--- NOTE | 2019-11-24 16:52 | Progress Note ---
DATE: SUBJECTIVE: The patient remains on Vapotherm at 35 L and 95%. The patient did not want an NG tube. After discussion with the family, the patient has opted for no CPR or endotracheal intubation. She does not want dialysis. PHYSICAL EXAMINATION: VITAL SIGNS: The patient is afebrile. The blood pressure is 128/45, saturation is 98%. HEENT: Shows no facial swelling or erythema. CARDIAC: Reveals regular rate and rhythm with normal S1 and S2. LUNGS: Auscultation of lungs reveals crackles at the bases. There is no wheezing. ABDOMEN: Soft and nontender. There is no rebound or guarding. EXTREMITIES: Shows no leg edema or calf tenderness. There is no cyanosis or clubbing. SKIN: Shows no rashes. NEUROLOGICAL: Shows no focal abnormalities. LABORATORY DATA: White blood cell count is 20.2, hemoglobin is 8.4, and platelet count is 244,000. BUN to creatinine ratio is 113 to 4.35. Carbon dioxide is 19. Blood sugar is 151. RADIOGRAPHIC DATA: Chest x-ray shows bilateral pulmonary infiltrates. IMPRESSION: 1. Acute respiratory failure. 2. Viral pneumonia and COVID-19 infection. 3. Acute on chronic renal failure. 4. Recurrent aspiration pneumonia. 5. Atrial fibrillation. 6. Chronic diastolic heart failure. PLAN: 1. Case discussed with palliative care, daughter, Elida, son (Nahum), Case Management and the attending physician. The family has opted for a DNR status. 2. Continue Vapotherm and wean as tolerated. 3. Continue p.o. feedings. The patient does not want an NG tube. 4. Continue current cardiac regimen. 5. Continue antibiotics. Hero Russell MD LM/AVILA /[id number]
--- NOTE | 2019-11-24 17:21 | Progress Note ---
DATE: SUBJECTIVE: Ms. Bullard remains in intensive care unit, intubated. PHYSICAL EXAMINATION: VITAL SIGNS: Stable, afebrile. HEENT: She is not icteric. NECK: Supple. CHEST: Crackles. HEART: S1 and S2. ABDOMEN: Soft. IMPRESSION: An 84-year-old with respiratory failure, COVID-19, acute on chronic kidney disease, aspiration pneumonia. Prognosis remains very guarded. Discussed with the medical team. Time spent 35 minutes. MD DANETTE Heller/AVILA /[id number]
[2019-11-24 17:37] LABS: CLARITY,URINE CLEAR (CLEAR); COLOR,URINE YELLOW (YELLOW)
[2019-11-24 17:38] LABS: BILIRUBIN,URINE NEGATIVE (NEGATIVE); KETONES,URINE NEGATIVE (NEGATIVE); LEUKOCYTE ESTERASE ,URINE TRACE (NEGATIVE); NITRITE,URINE NEGATIVE (NEGATIVE); PROTEIN,URINE DIPSTICK 1+ (NEGATIVE); URINE UROBILINOGEN 0.2 mg/dL (0.2 - 1)
[2019-11-24 17:53] LABS: EPITHELIAL CELLS,URINE RARE /LPF
[2019-11-24 17:54] LABS: WBC,URINE (MAN) 0-5 /HPF (0-5); YEAST,URINE MODERATE
--- NOTE | 2019-11-24 18:32 | Progress Note ---
DATE: 11/24/2019 Nephrology Progress Note SUBJECTIVE: The patient is desaturating upon movement. N.p.o. due to concern of aspiration. OBJECTIVE: VITAL SIGNS: Blood pressure 124/57, pulse 74 per minute. Urine output 380 mL recorded in the last 24 hours. GENERAL: Exam per nurse, the patient is not in acute distress at rest. COVID isolation. LABORATORY DATA: BUN and creatinine are continuing to rise, now 113 and 4.35 respectively. Potassium is stable, bicarb 19, total calcium 7.6. IMPRESSION AND PLAN: 1. Acute kidney injury secondary to coronavirus disease pneumonia/sepsis, continuing to deteriorate. 2. Metabolic acidosis, stable. 3. Blood pressure, stable. 4. Fluid overload, we will hold Lasix due to worsening azotemia. 5. Coronavirus disease-19 pneumonia/sepsis, apparently not responding to management. The patient has been made DNR today. I did ask the nurse to check with the family if dialysis was even an option, although I would recommend against it given her age and her overall medical condition. Kyler Cates MD [facility]/MODL /[id number]
[2019-11-25] VITALS (21 sets, daily range): BP systolic 103–145; BP diastolic 37–67
[2019-11-25] MEDS: LEVOTHYROXINE SODIUM 75 MCG TAB PO SCH (02:33)
[2019-11-25 06:43] LABS: CALCIUM 7.6 mg/dL (8.4-10.2); CREATININE, SERUM 4.91 mg/dL (0.57-1.11)
[2019-11-25] MEDS: SUCRALFATE 1 GM TAB PO SCH ×2 (09:00→17:00)
[2019-11-25] MEDS: CHOLECALCIFEROL 400 UNIT TAB PO SCH ×2 (09:00→17:00)
[2019-11-25] MEDS: ZINC SULFATE 220 MG CAP PO SCH (09:00)
[2019-11-25] MEDS: NIFEDIPINE CR 30 MG TAB PO SCH ×2 (09:00→21:42)
[2019-11-25] MEDS: BENZONATATE 100 MG CAP PO SCH ×3 (09:00→21:42)
[2019-11-25] MEDS: ASCORBIC ACID 500 MG TAB PO SCH ×2 (09:00→17:00)
[2019-11-25] MEDS: FERROUS SULFATE 325 MG TAB PO SCH ×2 (09:00→17:00)
--- NOTE | 2019-11-25 09:13 | NUR ---
IM-progress note O/N see below ROS: unreliable v/s; revd PE tired appearing anicteric ns1s2 REDUCED BS soft nt nd no e/t skin dry flat affect awake labs/meds revd A/P; Acute resp failure- abx; O2; steroids Multifocal PNA- IV abx Hyperkalemia- recheck KALLIE- IVF; recheck Physical deconditioning- PT Prop: heparin BID Dipso: monitor closely; f/u COVID testing; 11-12-19 Resp improving; CKD4 with KALLIE component; U/S does show medicorenal ds. Rapid HR- give AV blockade; check 12 lead EKG. 11-12 A.fib with RVR overnight- cardio consulted; echo ordered; eliquis for AC. - cont supportive care; HR controlled; CKD4. - cont care; dc planning -30 d/c planning; 7-1 SNF pending 7-2 IMproving; await SNF 7-3 needs free water 7-4 control BP; significant leukocytosis; supportive care; 7-5 cont care; monitor renal fn; Hypernatremia- give free water; check Na every 8 hours 7-6 give free water; 7-7 cont care in ICU. O2 support; remains full code; intubated if needed. 7-8 no change; cont NRBM/HiFlo; cont supportive care; remains full code; 7-9 metabolic acidosis- add bicarbs; cont O2 support; DNR; Abdifatah Mays MD, PhD.
[2019-11-25] MEDS: DIGOXIN 0.125 MG TAB PO SCH (09:29)
[2019-11-25] MEDS: METOPROLOL TARTRATE 50 MG TAB PO SCH ×2 (09:30→17:00)
[2019-11-25] MEDS: DEXTROSE 5%/0.45% SOD CHL 1,000 ML IV SCH (09:46)
[2019-11-25] MEDS: SODIUM BICARBONATE 650 MG TAB PO SCH ×3 (09:46→22:00)
--- NOTE | 2019-11-25 11:50 | Progress Note ---
DATE: Pulmonary Critical Care Progress Note SUBJECTIVE: The patient is sitting upright on Vapotherm. She is talking on the cellphone with her family. She does not complain of pain. She has fatigue and dyspnea. PHYSICAL EXAMINATION: VITAL SIGNS: Blood pressure is 126/51, saturation is 97% on Vapotherm with 40 L. HEENT: Shows no facial swelling or erythema. CARDIAC: Reveals regular rhythm with normal S1 and S2. LUNGS: Auscultation of lungs reveals crackles at the bases. There is no wheezing. ABDOMEN: Soft, nontender. There is no rebound or guarding. EXTREMITIES: Shows no leg edema or calf tenderness. There is no cyanosis or clubbing. SKIN: Shows no rashes. NEUROLOGICAL: Shows no focal abnormalities. LABORATORY DATA: White blood cell count is 20.2 and hemoglobin is 8.4. The platelet count is 244,000. The BUN to creatinine ratio is 122 to 4.91. The carbon dioxide is 18. Other electrolytes are within normal limits. IMPRESSION: 1. Acute respiratory failure. 2. Viral pneumonia and coronavirus disease-19 infection. 3. Acute on chronic renal failure. 4. Atrial fibrillation. 5. Recurrent aspiration pneumonia. 6. Chronic diastolic heart failure. PLAN: 1. The patient is DNR status at this time. Face time meeting with the family and the patient's plan for this afternoon. 2. Continue Vapotherm. 3. Continue current cardiac regimen. 4. Clarify whether the DNR will include dialysis or not. MD YUNIOR Malhotra/AVILA /[id number]
--- NOTE | 2019-11-25 18:26 | Progress Note ---
DATE: 11/25/2019 Nephrology Progress Note SUBJECTIVE: The patient remains in COVID isolation. Reportedly, sitting upright on Vapotherm and able to talk over the phone with the family. Complains of fatigue and dyspnea. PHYSICAL EXAMINATION: VITAL SIGNS: Blood pressure is stable at 126/51, saturations 97% on Vapotherm with 40 L. LUNGS: Crackles at both bases without wheezing. CARDIOVASCULAR: Regular rate and rhythm with normal S1, S2. EXTREMITIES: No edema. NEUROLOGICAL: She is awake. LABORATORY DATA: White count is 20,000, hemoglobin 8.4, and platelets normal. BUN and creatinine have continued to rise, now at 122 and 4.91 respectively. Bicarb 18. IMPRESSION AND PLAN: 1. 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 2. Metabolic acidosis secondary to above. 3. Blood pressure, stable. 4. Coronavirus disease-19 pneumonia/sepsis. Continue supportive treatment. Check with family regarding being on dialysis, although that would not be recommended based on her age and complex medical status. MD MARIAN Horton/MODL /[id number]
[2019-11-26] VITALS (12 sets, daily range): BP systolic 129–150; BP diastolic 44–72
[2019-11-26] MEDS: SODIUM BICARBONATE 650 MG TAB PO SCH ×4 (06:00→20:09)
[2019-11-26] MEDS: LEVOTHYROXINE SODIUM 75 MCG TAB PO SCH ×2 (06:00→20:08)
[2019-11-26] MEDS: FERROUS SULFATE 325 MG TAB PO SCH ×2 (09:00→17:00)
[2019-11-26] MEDS: BENZONATATE 100 MG CAP PO SCH ×3 (09:00→20:09)
[2019-11-26] MEDS: SUCRALFATE 1 GM TAB PO SCH ×2 (09:00→17:00)
[2019-11-26] MEDS: DIGOXIN 0.125 MG TAB PO SCH (09:00)
[2019-11-26] MEDS: ASCORBIC ACID 500 MG TAB PO SCH ×2 (09:00→17:00)
[2019-11-26] MEDS: NIFEDIPINE CR 30 MG TAB PO SCH ×2 (09:00→20:08)
[2019-11-26] MEDS: CHOLECALCIFEROL 400 UNIT TAB PO SCH ×2 (09:00→17:00)
[2019-11-26] MEDS: METOPROLOL TARTRATE 50 MG TAB PO SCH ×2 (09:00→17:00)
[2019-11-26] MEDS: ZINC SULFATE 220 MG CAP PO SCH (09:00)
--- NOTE | 2019-11-26 10:30 | Progress Note ---
DATE: SUBJECTIVE: The patient is afebrile. She has no new issues. Family has opted for DNR on palliative care. She is scheduled to go home with hospice. PHYSICAL EXAMINATION: VITAL SIGNS: The blood pressure is 145/52 and saturation is 92% on Vapotherm with 40 L. HEENT: Shows no facial swelling or erythema. LYMPHATIC: Shows no submandibular, cervical, or supraclavicular adenopathy. CARDIAC: Reveals a regular rate and rhythm with normal S1 and S2. There are no murmurs or rubs. LUNGS: Auscultation of lungs reveals rhonchorous breath sounds bilaterally. There is no wheezing. ABDOMEN: Soft and nontender. There is no rebound or guarding. EXTREMITIES: Shows no leg edema or calf tenderness. There is no cyanosis or clubbing. SKIN: Shows no rashes. NEUROLOGICAL: Shows no focal abnormalities. LABORATORY DATA: Hemoglobin is 8.4 and the white blood cell count is 20.2. Platelet count is 244. The BUN to creatinine ratio is 122 to 4.91 and the carbon dioxide is 18. IMPRESSION: 1. Acute respiratory failure. 2. Viral pneumonia and COVID-19 infection. 3. Mhjia-cj-jqvbghc renal failure. 4. Atrial fibrillation. 5. Chronic diastolic heart failure. PLAN: 1. The patient is DNR. Palliative care is in place and the patient is planning for hospice. 2. Transition from Vapotherm to high flow oxygen. MD YUNIOR Malhotra/AVILA /[id number]
[2019-11-26] MEDS: DEXTROSE 5%/0.45% SOD CHL 1,000 ML IV SCH (11:14)
--- NOTE | 2019-11-26 12:26 | NUR ---
IM-progress note O/N see below ROS: unreliable v/s; revd PE tired appearing anicteric ns1s2 REDUCED BS soft nt nd no e/t skin dry flat affect awake labs/meds revd A/P; Acute resp failure- abx; O2; steroids Multifocal PNA- IV abx Hyperkalemia- recheck KALLIE- IVF; recheck Physical deconditioning- PT Prop: heparin BID Dipso: monitor closely; f/u COVID testing; 11-12-19 Resp improving; CKD4 with KALLIE component; U/S does show medicorenal ds. Rapid HR- give AV blockade; check 12 lead EKG. 11-12 A.fib with RVR overnight- cardio consulted; echo ordered; eliquis for AC. - cont supportive care; HR controlled; CKD4. - cont care; dc planning 6-30 d/c planning; 7-1 SNF pending 7-2 IMproving; await SNF 7-3 needs free water 7-4 control BP; significant leukocytosis; supportive care; 7-5 cont care; monitor renal fn; Hypernatremia- give free water; check Na every 8 hours 7-6 give free water; 7-7 cont care in ICU. O2 support; remains full code; intubated if needed. 7-8 no change; cont NRBM/HiFlo; cont supportive care; remains full code; 7-9 metabolic acidosis- add bicarbs; cont O2 support; DNR; 7-10 d/c planning to hospice. Abdifatah Mays MD, PhD.
--- NOTE | 2019-11-26 14:55 | NUR ---
patient is seen and examined doing poorly discussed with all mds and medical team PHYSICAL EXAMINATION: VITAL SIGNS: The blood pressure is 145/52 and saturation is 92% on Vapotherm with 40 L. very weak HEENT: Shows no facial swelling or erythema. not pale not icteric LYMPHATIC: Shows no submandibular, cervical, or supraclavicular adenopathy. CARDIAC: Reveals a regular rate and rhythm with normal S1 and S2. There are no murmurs or rubs. LUNGS: Auscultation of lungs reveals rhonchus breath sounds bilaterally. There is no wheezing. ABDOMEN: Soft and nontender. There is no rebound or guarding. EXTREMITIES: Shows no leg edema or calf tenderness. There is no cyanosis or clubbing. SKIN: Shows no rashes. NEUROLOGICAL: Shows no focal abnormalities. LABORATORY DATA: Hemoglobin is 8.4 and the white blood cell count is 20.2. Platelet count is 244. The BUN to creatinine ratio is 122 to 4.91 and the carbon dioxide is 18. IMPRESSION: 1. Acute respiratory failure. 2. Viral pneumonia and COVID-19 infection. 3. Ipwso-zb-xjblwgs renal failure. 4. Atrial fibrillation. 5. Chronic diastolic heart failure patient family wants comfort care talked to family will put on 100 percent and move to medical floor
--- NOTE | 2019-11-26 17:46 | NUR ---
Follow up. Chart reviewed. Pt is currently NPO. Per MD note, family decided on palliative care/DNR status and pt is scheduled to go home with hospice. RD signing off at this time Consult as needed. Signed: Hannah Ross RD, LD
--- NOTE | 2019-11-26 18:11 | NUR ---
pt brought to room 284; received very brief bedside report from KIMBERLY Logan who states she will return with full report. pt awake, alert, in stable condition. received confirmation from Special Projects Manager and CNO that pt can have two visitors (Monserrat and Nahum Hamilton) come see her in isolation and visitors may remain for 1 hour.
--- NOTE | 2019-11-26 18:20 | NUR ---
Pt transferred pt to floor bed with PB Hamilton, pt transferred to new bed with assistance of CN. Full nursing report given to primary RN assuming care of pt at nurse's station after leaving pt's room. Received call from RN on floor regarding questions, updated over phone regarding labs. Pt stable during transport.
--- NOTE | 2019-11-26 20:01 | NUR ---
Received change of shift report from AM nurse. Son in room at bedside. Daughter arrived and replaced son. Daughter at bedside. Patient with no distress. Hospice called to f/u on patient. Will call back tomorrow and s/w with
[2019-11-27] VITALS (8 sets, daily range): BP systolic 121–165; BP diastolic 48–88
[2019-11-27] MEDS: DEXTROSE 5%/0.45% SOD CHL 1,000 ML IV SCH (05:37)
--- NOTE | 2019-11-27 05:44 | NUR ---
Patient resting quitly at this time. Continue monitor.
--- NOTE | 2019-11-27 07:00 | NUR ---
BEDSIDE SHIFT REPORT RECEIVED FROM DIRECTOR NEW PRODUCT RN. PT DENIES NEEDS AT THIS TIME.
[2019-11-27] MEDS: ZINC SULFATE 220 MG CAP PO SCH ×2 (09:00→09:56)
[2019-11-27] MEDS: BENZONATATE 100 MG CAP PO SCH ×4 (09:00→21:00)
[2019-11-27] MEDS: SUCRALFATE 1 GM TAB PO SCH ×3 (09:00→16:58)
[2019-11-27] MEDS: FERROUS SULFATE 325 MG TAB PO SCH ×3 (09:00→16:59)
[2019-11-27] MEDS: NIFEDIPINE CR 30 MG TAB PO SCH ×3 (09:00→21:00)
[2019-11-27] MEDS: ASCORBIC ACID 500 MG TAB PO SCH ×3 (09:00→16:59)
[2019-11-27] MEDS: METOPROLOL TARTRATE 50 MG TAB PO SCH ×3 (09:00→16:59)
[2019-11-27] MEDS: DIGOXIN 0.125 MG TAB PO SCH ×2 (09:00→09:55)
[2019-11-27] MEDS: CHOLECALCIFEROL 400 UNIT TAB PO SCH ×3 (09:00→17:00)
--- NOTE | 2019-11-27 11:58 | NUR ---
CALLED AND SPOKE WITH DAUGHTER TONYA VASQUEZ [phone] SHE DEFERRED ME TO HER BROTHER AUGUSTIN [phone] TO DISCUSS HOSPICE ORDER, LEFT MESSAGE TO RETURN CALL.
[2019-11-27] MEDS: SODIUM BICARBONATE 650 MG TAB PO SCH ×2 (14:00→21:49)
--- NOTE | 2019-11-27 18:56 | Progress Note ---
DATE: SUBJECTIVE: The patient is afebrile. She is more somnolent today. PHYSICAL EXAMINATION: VITAL SIGNS: Stable. The blood pressure is 165/50, saturation is 95%, and the pulse is 97. HEENT: Shows no facial swelling or erythema. CARDIAC: Reveals regular rate and rhythm with normal S1, S2. LUNGS: Auscultation of lungs reveals rhonchorous breath sounds bilaterally. There is no wheezing. ABDOMEN: Soft, nontender. There is no rebound or guarding. EXTREMITIES: Shows no leg edema or calf tenderness. There is no cyanosis or clubbing. SKIN: Shows no rashes. IMPRESSION: 1. Acute respiratory failure. 2. Viral pneumonia and COVID-19 infection. 3. Drfgw-bn-vvnbjih renal failure. 4. Atrial fibrillation. 5. Chronic diastolic heart failure. PLAN: 1. Continue palliative care. 2. Continue current antibiotics. 3. Continue oxygen. 4. Discussed disposition with Case Management and Dr. Mays. Hero Russell MD [facility]/AVILA /[id number]
--- NOTE | 2019-11-27 19:20 | NUR ---
BEDSIDE SHIFT REPORT RECEIVED FROM DAY RN.PT OPENS HER EYES TO VERBAL STIMULI AND RESPONDED VERBALLY TO FAMILY. RESPIRATIONS ARE REGULAR AND UNLABORED.O2 NRB 15 L ON. PIV 20 G IN LEFT FA- SITE HEALTHY. STANLEY TO GRAVITY DRAINING VALERIE COLORED URINE WITH SEDIMENT. CALL LIGHT WITHIN REACH. bED LOCKED AND IN LOW POSITION. Addendum: 11/28/19 at 0302 by RADHA MAURICE RN PT HAS HIGH FLOW AT 15 LITERS N/C ON.
[2019-11-28] VITALS (8 sets, daily range): BP systolic 141–171; BP diastolic 33–85
[2019-11-28] MEDS: SODIUM BICARBONATE 650 MG TAB PO SCH ×3 (06:00→22:00)
[2019-11-28] MEDS: LEVOTHYROXINE SODIUM 75 MCG TAB PO SCH (06:00)
--- NOTE | 2019-11-28 07:00 | NUR ---
BEDSIDE SHIFT REPORT RECEIVED FROM VIDEO GAME MAKER RN. PT DENIES NEEDS AT THIS TIME.
[2019-11-28] MEDS: DEXTROSE 5%/0.45% SOD CHL 1,000 ML IV SCH (07:36)
[2019-11-28] MEDS: BENZONATATE 100 MG CAP PO SCH ×3 (09:00→21:00)
[2019-11-28] MEDS: ASCORBIC ACID 500 MG TAB PO SCH ×2 (09:00→16:58)
[2019-11-28] MEDS: CHOLECALCIFEROL 400 UNIT TAB PO SCH ×2 (09:00→16:58)
[2019-11-28] MEDS: METOPROLOL TARTRATE 50 MG TAB PO SCH ×2 (09:00→16:58)
[2019-11-28] MEDS: SUCRALFATE 1 GM TAB PO SCH ×2 (09:00→16:58)
[2019-11-28] MEDS: FERROUS SULFATE 325 MG TAB PO SCH ×2 (09:00→16:58)
[2019-11-28] MEDS: DIGOXIN 0.125 MG TAB PO SCH (09:00)
[2019-11-28] MEDS: ZINC SULFATE 220 MG CAP PO SCH (09:00)
[2019-11-28] MEDS: NIFEDIPINE CR 30 MG TAB PO SCH ×2 (09:00→21:00)
--- NOTE | 2019-11-28 19:23 | NUR ---
BEDSIDE SHIFT REPORT RECEIVED FROM DAY RN. PT RESPONSIVE TO VERBAL STIMULI-SPEECH CLEAR- ASK TO CALL MEMBEER OF HER FAMILY. NURSE ASSISTED PT TO CALL FAMILY. FAMILY HERE TO VISIT. O2 HIGH FLOW O2 NC 15LITERS ON. RESPIRATIONS 24. TELE ON. PT DENIES PAIN. STANLEY TO GRAVITY DRAINING YELLOW URINE WITH WHITE SEDIMENT. D51/2 INFUSING AT 40ML/HR VIA RT AC. SITE HEALTHY. CALL LIGHT WITHIN REACH. BED LOCKED AND IN LOW POSITION.
--- NOTE | 2019-11-28 19:45 | Progress Note ---
DATE: SUBJECTIVE: The patient is requiring more oxygen. She is on high-flow nasal cannula. She is less responsive. PHYSICAL EXAMINATION: VITAL SIGNS: Blood pressure is 171/85, pulse is 91. HEENT: Shows no facial swelling or erythema. CARDIAC: Reveals regular rate and rhythm with normal S1 and S2. LUNGS: Auscultation of lungs reveals crackles at the bases. There is no wheezing. ABDOMEN: Soft and nontender. There is no rebound or guarding. IMPRESSION: 1. Acute respiratory failure. 2. Viral pneumonia and COVID-19 infection. 3. Acute on chronic renal failure. 4. Atrial fibrillation. 5. Chronic diastolic heart failure. PLAN: 1. Continue palliative care. 2. Continue oxygen. 3. Discussed disposition with Case Management and Dr. Mays. Hero Russell MD [facility]/GIOVANNYL /[id number]
--- NOTE | 2019-11-28 22:28 | NUR ---
DR BAKER HERE TO SEE PT. FAMILY HERE EARLIER FOR 1 HOUR. LABS D/C.RESPIRATIONS MORE LABORED.PT NPO. Addendum: 11/28/19 at 2232 by RADHA MAURICE RN PT SURENDRA DONALDSON
[2019-11-29] VITALS: BP 131/61
--- NOTE | 2019-11-29 01:11 | NUR ---
VS AT 12MN T97.9 HR 78 R 28 B/P 137/61 O2 SAT 97. RESPIRATIONS ARE MORE LABORED . PT REMAINS ALERT AND RESPONDS VERBALLY. PT DENIES PAIN. PLANT MACHINIST CALLED O2 SATS FALLING INTO 80% AT TIMES.O2 HIGH FLOW N/C 15LITERS ON. PT REMAINS DNR. NO FAMILY PRESENT AT THIS TIME.
--- NOTE | 2019-11-29 02:28 | NUR ---
TELE CALLED PT [employer] [employer] RHYTHM OF 47 AT 0144. RN WENT TO ROOM AND HELD PT'S HAND. RESPIRATIONS AGONAL. PT DNR. PT PRONOUNCED BY ER PHYSICIAN AT 0147. ATTENDING PHYSICIAN DR BAKER NOTIFIED BY PHONE AT 0224. NURSING SOLAR INSTALLER NOTIFIED OF AT 0150. FAMILY NOTIFIED OF -AUGUSTIN NELSON AT 0200. FAMILY DID NOT KNOW WHAT HOME AT THIS TIME. [employer] NOTIFIED AT 0218- MANISH Gayle CASE # [id number]. PT NOT CANDIDATE FOR TRANSPLANT DUE TO COVID.AWAITING CALL BACK FROM FAMILY.
[2019-11-29] MEDS: LEVOTHYROXINE SODIUM 75 MCG TAB PO SCH (06:00)
[2019-11-29] MEDS: SODIUM BICARBONATE 650 MG TAB PO SCH (06:00)
[2019-11-29] MEDS: DEXTROSE 5%/0.45% SOD CHL 1,000 ML IV SCH (06:45)
--- NOTE | 2019-11-29 07:00 | NUR ---
REPORT RECEIVED ON PT'S PASSING AND FAMILY WELL HOME CONTACT.
--- NOTE | 2019-11-29 07:32 | NUR ---
[facility] CALLED AT 5AM,5:26AM,0546AM,AND TEXTED THEM AT 0551. NURSING SUPERVSOR AWARE UNABLE TO REACH HOME. AUGUSTIN SON NOTIFIED AND HE IS DRIVING TO HOME. NO CALL BACK FROM FAMILY. ENDORSED TO DAY RN.
[2019-11-29] MEDS: DIGOXIN 0.125 MG TAB PO SCH (08:32)
[2019-11-29] MEDS: SUCRALFATE 1 GM TAB PO SCH (08:32)
[2019-11-29] MEDS: FERROUS SULFATE 325 MG TAB PO SCH (08:32)
[2019-11-29] MEDS: BENZONATATE 100 MG CAP PO SCH (08:33)
[2019-11-29] MEDS: CHOLECALCIFEROL 400 UNIT TAB PO SCH (08:33)
[2019-11-29] MEDS: ZINC SULFATE 220 MG CAP PO SCH (08:33)
[2019-11-29] MEDS: ASCORBIC ACID 500 MG TAB PO SCH (08:33)
[2019-11-29] MEDS: NIFEDIPINE CR 30 MG TAB PO SCH (08:33)
[2019-11-29] MEDS: METOPROLOL TARTRATE 50 MG TAB PO SCH (08:33)
[2019-11-29 08:41] VITALS: BP 171/74
--- NOTE | 2019-11-29 09:14 | NUR ---
RECEIVED CALLBACK AND SPOKE TO STEFANO AT [facility]. DIRECTOR CALLED. ON THEIR WAY FOR BODY.
--- NOTE | 2019-11-29 11:10 | NUR ---
PT PICKED UP BY HOME AT 1048.
== END 2019-11-29 10:47 | disposition expired | DRG 871 ==
LOC: ER 21:55 → ERHOLD 11-11 07:47 → IMCU 11-11 11:04 → COVIDICU 11-23 01:40 → MED/SURG3 11-26 18:27
PROVIDERS: ADMIT Internal Medicine; ATTEND Internal Medicine
PROC: 8E0ZXY6 Isolation (ICD-10-PCS; principal; 2019-11-11)
DX: A41.89 Other specified sepsis (principal); U07.1 COVID-19; J96.00 Acute respiratory failure, unspecified whether with hypoxia or hypercapnia; J12.89 Other viral pneumonia; J15.9 Unspecified bacterial pneumonia; I50.33 Acute on chronic diastolic (congestive) heart failure; J69.0 Pneumonitis due to inhalation of food and vomit; N17.9 Acute kidney failure, unspecified; E87.2 Acidosis; N18.4 Chronic kidney disease, stage 4 (severe); I47.2 Ventricular tachycardia; I13.0 Hypertensive heart and chronic kidney disease with heart failure and stage 1 through stage 4 chronic kidney disease, or unspecified chronic kidney disease; E87.0 Hyperosmolality and hypernatremia; Z66 Do not resuscitate; I48.0 Paroxysmal atrial fibrillation; E03.9 Hypothyroidism, unspecified; E87.5 Hyperkalemia; E11.22 Type 2 diabetes mellitus with diabetic chronic kidney disease; Z90.49 Acquired absence of other specified parts of digestive tract; D64.9 Anemia, unspecified; Z82.49 Family history of ischemic heart disease and other diseases of the circulatory system; R53.81 Other malaise; D63.8 Anemia in other chronic diseases classified elsewhere; Z51.5 Encounter for palliative care
CPT/HCPCS: 36415; 71045; 76770; 80048; 80053; 80162; 81001; 82550; 82553; 82570; 82805; 82948; 83735; 83880; 84100; 84156; 84295; 84300; 84484; 85007; 85025; 85027; 87040; 93005; 93306; 96360; 99284; J0456; J0610; J0692; J0696; J1644; J1817; J1940; J2405; J2930; J7050; J7070; J7799; U0002